=== PATIENT | male | born 1945 | race Caucasian/White ===

== ENCOUNTER 2019-09-03 08:25 | Outpatient (CLI) | payer MEDICARE, SELFPAY ==
[2019-09-03 09:11] LABS: Basophils Absolute Auto 0.1 K/mm3 (0.0-0.1); Basophils Percent Auto 0.7 % (0.2-1.2); Eosinophils Absolute Auto 0.1 K/mm3 (0-0.3); Eosinophils Percent Auto 0.4 % (0-4.4); Hematocrit 45.5 % (42.0-52.0); Hemoglobin 14.6 g/dL (14.0-18.0); Immature Granulocyte Absolute 0.03 K/mm3 (0.00-0.031); Immature Granulocyte Percent A 0.2 % (0-0.5); Lymphocytes Absolute Auto 2.46 K/mm3 (0.9-3.2); Lymphocytes Percent Auto 20.4 % (18.3-44.2); Mean Corpuscular HGB Conc 32.1 g/dl (32-36); Mean Corpuscular Hemoglobin 31.1 pg (26-34); Mean Corpuscular Volume 96.8 fl (80-100); Mean Platelet Volume 10.2 fl (7.4-10.4); Monocytes Absolute Auto 1.1 K/mm3 (0.1-0.6); Monocytes Percent Auto 9.3 % (2.6-8.5); Neutrophils Absolute Auto 8.3 K/mm3 (1.3-6.7); Platelet Count Result 349 k/mm3 (150-375); White Blood Count 12.1 K/mm3 (4.5-10.0)
[2019-09-03 09:23] LABS: INR 0.9; Prothrombin Time 11.9 Seconds (11.1-14.7)
[2019-09-03 09:27] LABS: Alanine Aminotransferase 29 U/L (4-50); Albumin Level 4.1 g/dL (3.5-5.1); Alkaline Phosphatase 92 U/L (38-126); Aspartate Amino Transferase 34 U/L (17-59); Bilirubin,Total 0.5 mg/dL (0.2-1.3); Blood Urea Nitrogen 17 mg/dL (9-20); Carbon Dioxide 30 mmol/L (22-30); Chloride 98 mmol/L (98-107); Estimated Glomerular Filt Rate > 60; Glucose 95 mg/dL (75-110); Potassium 4.1 mmol/L (3.4-5.0); Sodium 136 mmol/L (137-145)
== END 2019-09-03 08:26 | disposition home or self-care (01) ==
PROVIDERS: PCP Family Medicine; Visit Provider Internal Medicine Cardiovascular Disease
DX: Z01.810 Encounter for preprocedural cardiovascular examination (principal); I73.9 Peripheral vascular disease, unspecified; I99.9 Unspecified disorder of circulatory system
CPT/HCPCS: 36415; 80053; 85025; 85610

== ENCOUNTER 2020-01-21 07:52 | Outpatient (CLI) | payer MEDICARE, SELFPAY ==
--- NOTE | ~2020-01-21 | US_ITS ---
EXAMINATION: US arterial ankle brachial ind DATE: 01/21/2020 09:12 INDICATION: Intermittent claudication. Peripheral arterial occlusive disease. TECHNIQUE: Segmental pressures and plethysmographic and Doppler waveforms of the brachial and lower e xtremity arteries were obtained. COMPARISON: 02/01/2019 ultrasound arterial Doppler with pressure FINDINGS: Right and left brachial artery pressures of 146 mm Hg and 132 mm Hg, respectively, are concordant (no rmal difference <= 30 mmHg). The right ankle-brachial index (NAVID) is 1.10 (normal >= 0.9-1.0). The right great toe-brachial index (TBI) is 0.96 (normal >= 0.65). Arterial Doppler waveforms are biphasic. The left NAVID is 1.07. The left TBI is 0.74. Arterial Doppler waveforms are biphasic. IMPRESSION: Bilateral normal NAVID and TBI Reviewed, dictated and finalized at [facility]. Reviewed, dictated and finalized at [facility].
== END 2020-01-21 07:53 | disposition home or self-care (01) ==
PROVIDERS: PCP Family Medicine; Visit Provider Internal Medicine Cardiovascular Disease
DX: I77.9 Disorder of arteries and arterioles, unspecified (principal); I73.9 Peripheral vascular disease, unspecified
CPT/HCPCS: 93922

== ENCOUNTER 2021-02-10 07:29 | Outpatient (CLI) | payer MEDICARE, SELFPAY ==
--- NOTE | ~2021-02-10 | US_ITS ---
EXAMINATION: US art doppler w press LE BI DATE: 02/10/2021 08:34 INDICATION: Peripheral arterial occlusive disease post angioplasty and stenting. TECHNIQUE: Segmental pressures and plethysmographic and Doppler waveforms of the brachial and lower e xtremity arteries were obtained. COMPARISON: None. FINDINGS: Right and left brachial artery pressures of 142 mm Hg and 159 mm Hg, respectively, are concordant (no rmal difference <= 30 mmHg). The right ankle-brachial index (NAVID) is 1.04 (normal >= 0.9-1). The right great toe-brachial index (T BI) is 0.86 (normal >= 0.6-0.8). Arterial waveforms are biphasic waveforms with brisk systolic upstro kes throughout the arteries of the right lower limb.. The left NAVID is 1.08. The left TBI is 0.86. Arterial waveforms are biphasic with brisk systolic upstr okes throughout. IMPRESSION: 1. Normal NAVID's and TBI's bilaterally. No significant occlusive disease. Reviewed, dictated and finalized at [facility].
== END 2021-02-10 07:30 | disposition home or self-care (01) ==
LOC: ANHIMG 07:33
PROVIDERS: PCP Family Medicine; Visit Provider Internal Medicine Cardiovascular Disease
DX: I73.9 Peripheral vascular disease, unspecified (principal); Z95.820 Peripheral vascular angioplasty status with implants and grafts
CPT/HCPCS: 93923

== ENCOUNTER 2021-12-04 08:08 | Outpatient (CLI) | payer MEDICARE, SELFPAY ==
[2021-12-04 10:34] LABS: Alanine Aminotransferase 21 U/L (6-50); Albumin Level 4.3 g/dL (3.5-5.1); Alkaline Phosphatase 86 U/L (38-126); Anion Gap 4 mmol/L (8-16); Aspartate Amino Transferase 37 U/L (17-59); Bilirubin,Total 0.4 mg/dL (0.2-1.3); Blood Urea Nitrogen 14 mg/dL (9-20); Calcium 8.9 mg/dL (8.4-10.2); Carbon Dioxide 29 mmol/L (22-30); Chloride 105 mmol/L (98-107); Cholesterol 244 mg/dL (0-200); Estimated Glomerular Filt Rate > 60; Glucose 97 mg/dL (65-110); HDL Direct 54 mg/dL; Potassium 4.4 mmol/L (3.4-5.0); Sodium 138 mmol/L (137-145); Triglycerides 101 mg/dL (<150)
[2021-12-04 10:46] LABS: LDL Cholesterol Direct 146 mg/dL
[2021-12-04 11:02] LABS: Prostate Specific Antigen 2.6 ng/mL (< OR = 4.0)
== END 2021-12-04 08:09 | disposition home or self-care (01) ==
LOC: ANHLAB 08:13
PROVIDERS: PCP Family Medicine; Visit Provider Family Medicine
DX: E78.5 Hyperlipidemia, unspecified (principal); Z12.5 Encounter for screening for malignant neoplasm of prostate
CPT/HCPCS: 36415; 80053; 80061; 84153; G0103

== ENCOUNTER 2021-12-06 13:43 | Emergency (ER) | payer MEDICARE, SELFPAY ==
--- NOTE | ~2021-12-06 | CT_ITS ---
EXAMINATION: CT abdomen pelvis wo con DATE: 12/06/2021 15:14 INDICATION: hematuria TECHNIQUE: Computed tomography (CT) of the abdomen and pelvis was performed without intravenous contr ast. Automated exposure control and iterative reconstruction technique were employed. The dose-length product was 313.21 mGy-cm. COMPARISON: None FINDINGS: Lower thorax: Coronary artery calcification. Liver: Normal. Biliary/Gallbladder: Gallbladder is normal. No bile duct dilation. Pancreas: No mass or duct dilation. Spleen: Normal. Adrenals:No mass. Kidneys: Bilateral perinephric stranding. Bilateral hypodensities, too small to characterize but like ly simple cyst. Right upper pole hemorrhagic or proteinaceous cyst. GI tract: No small or large bowel dilation. Normal appendix. Severe diverticulosis without diverticul itis. Mesentery/Peritoneum: No ascites, mass, or free air. Retroperitoneum: No mass. Arterial atherosclerotic ossifications. Pelvis: Bladder wall thickening likely on the basis of outlet obstruction from significant prostatome any. 10 x 25 mm hyperdensity in the dependent bladder, adjacent to the right UVJ. Soft Tissues: Soft tissues and body wall unremarkable. Bones: No acute osseous finding. IMPRESSION: 10 x 25 mm dependent urinary bladder hyperdensity, may reflect adherent clot/debris or a sessile mass . Consider urology referral for cystoscopy. Reviewed, dictated and finalized at [facility]. IMPRESSION: 10 x 25 mm dependent urinary bladder hyperdensity, may reflect adherent clot/de bris or a sessile mass. Consider urology referral for cystoscopy.
[2021-12-06 13:45] VITALS: BP 177/75; PULSE 62; RESP 18; TEMP 36.6; O2SAT 100
[2021-12-06 14:51] LABS: Basophils Absolute Auto 0.1 K/mm3 (0.0-0.1); Basophils Percent Auto 0.8 % (0.2-1.2); Eosinophils Absolute Auto 0.1 K/mm3 (0-0.3); Eosinophils Percent Auto 0.8 % (0-4.4); Hematocrit 45.7 % (42.0-52.0); Hemoglobin 14.8 g/dL (14.0-18.0); Immature Granulocyte Absolute 0.01 K/mm3 (0.00-0.031); Immature Granulocyte Percent A 0.1 % (0-0.5); Lymphocytes Absolute Auto 2.56 K/mm3 (0.9-3.2); Lymphocytes Percent Auto 30.5 % (18.3-44.2); Mean Corpuscular HGB Conc 32.4 g/dl (32-36); Mean Corpuscular Hemoglobin 30.9 pg (26-34); Mean Corpuscular Volume 95.4 fl (80-100); Mean Platelet Volume 10.3 fl (7.4-10.4); Monocytes Absolute Auto 0.8 K/mm3 (0.1-0.6); Monocytes Percent Auto 9.8 % (2.6-8.5); Neutrophils Absolute Auto 4.9 K/mm3 (1.3-6.7); Platelet Count Result 311 k/mm3 (150-375); Red Blood Count 4.79 M/mm3 (4.6-6.20); Red Cell Distribution Width 13.6 % (11.5-14.5); White Blood Count 8.4 K/mm3 (4.5-10.0)
[2021-12-06 14:54] LABS: Add Urine Microscopic? YES; Appearance Urine Turbid (Clear); Bilirubin Urine Negative (Negative); Blood Urine 3+ (Negative); Color Urine Red (Yellow); Glucose Urine UA Negative (Negative); Ketones Urine Negative (Negative); Leukocyte Esterase Ur Negative LEU/UL (Negative); Nitrate Urine Negative (Negative); Protein Urine 2+ mg/dL (Negative); Specific Grav Ur 1.015 (1.001-1.035); Urobilinogen Urine 0.2 mg/dL (<2.0)
[2021-12-06 14:59] LABS: RBC Urine >75 /hpf (0-2)
[2021-12-06 15:02] LABS: Prothrombin Time 12.3 Seconds (11.1-14.7)
--- NOTE | 2021-12-06 15:02 | ED.GENADULT ---
HPI - General Adult General Chief complaint: Urogenital-Male Stated complaint: Blood in urine Time Seen by Provider: 12/06/21 14:22 History of Present Illness HPI narrative: 76-year-old male presenting to the emergency department for evaluation of hematuria. Patient states that yesterday morning when he woke up he had dark urine but states he drank water and over the course of the day it cleared. Patient states he had dark urine again this morning but then it became bloody. Patient has no prior history of urinary retention. Patient has no current dysuria. Patient denies any associated abdominal pain. Patient does take Plavix for history of peripheral vascular disease and does have a stent in his right leg Denies any prior history of urinary retention. Related Data Allergies Allergy/AdvReac Type Severity Reaction Status Date / Time No Known Allergies Allergy Verified 12/06/21 13:48 Review of Systems Review of Systems: CONSTITUTIONAL: Denies fever, chills, or sweats. EYES: Denies visual changes, redness, or discharge. ENT: Denies rhinorrhea, congestion, sore throat, or otalgia. CARDIOVASCULAR: Denies chest pain, palpitations, or edema. RESPIRATORY: Denies cough or dyspnea. GASTROINTESTINAL: Denies abdominal pain, nausea, vomiting, or diarrhea. GENITOURINARY: See HPI SKIN: Denies rash or itching. MUSCULOSKELETAL: Denies back pain, joint pain, or myalgia. NEUROLOGIC: Denies headache, numbness, or weakness. Exam Narrative: APPEARANCE: Well appearing, no pain, no distress, well-nourished. HEAD: normocephalic, atraumatic. EYES: PERRLA/EOMI, conjunctivae clear. NECK: Supple. No adenopathy, no masses. RESPIRATORY: Airway patent, respirations nonlabored. Clear to auscultation bilaterally, no rales, rhonchi, wheezing. CARDIOVASCULAR: Regular rate and rhythm without murmurs rubs or gallops. ABDOMINAL: Soft, nontender, nondistended, normal bowel sounds MUSCULOSKELETAL: Moves all extremities. Strength/ROM intact, No edema, No calf tenderness. NEURO: Alert. Cranial nerves II through XII intact. Grossly intact SKIN: Warm, dry. Normal Color Course Course Emergency Course: Patient did have hematuria on his UA. No evidence of white blood cells or infection. Patient is not retaining urine his postvoid residual was 50 mL. Patient states that he did have some clearing of his urine while he was here. Urine is red blood tinged and does have some clots. CT scan showed a 10 x 25 mm adhered clot versus sessile mass. Urology was consulted. Dr. Mena was comfortable with the plan for discharge and close outpatient follow-up. Vital Signs Vital signs: Vital Signs Temperature 97.8 F 12/06/21 13:45 Pulse Rate 62 12/06/21 13:45 Respiratory Rate 18 12/06/21 13:45 Blood Pressure 177/75 H 12/06/21 13:45 Pulse Oximetry 100 12/06/21 13:45 Oxygen Delivery Room Air 12/06/21 13:45 Temperature 97.8 F 12/06/21 13:45 Pulse Rate 60 12/06/21 16:44 Respiratory Rate 18 12/06/21 16:44 Blood Pressure 149/79 H 12/06/21 16:44 Pulse Oximetry 96 12/06/21 16:44 Oxygen Delivery Room Air 12/06/21 13:45 Medical Decision Making Vital Signs Vital Signs: Vital Signs Temperature 97.8 F 12/06/21 13:45 Pulse Rate 62 12/06/21 13:45 Respiratory Rate 18 12/06/21 13:45 Blood Pressure 177/75 H 12/06/21 13:45 Pulse Oximetry 100 12/06/21 13:45 Oxygen Delivery Room Air 12/06/21 13:45 Temperature 97.8 F 12/06/21 13:45 Pulse Rate 60 12/06/21 16:44 Respiratory Rate 18 12/06/21 16:44 Blood Pressure 149/79 H 12/06/21 16:44 Pulse Oximetry 96 12/06/21 16:44 Oxygen Delivery Room Air 12/06/21 13:45 Lab Data Lab results reviewed: Yes I reviewed the patient's lab results. Result diagrams: 12/06/21 14:37 12/06/21 14:37 Labs: Lab Results 12/06/21 12/06/21 12/06/21 Range/Units 14:30 14:37 14:37 WBC 8.4 (4.5-10.0) K/mm3 RBC 4.79 (4.6-6.20) M/m
[2021-12-06 15:03] LABS: Alanine Aminotransferase 22 U/L (6-50); Albumin Level 4.1 g/dL (3.5-5.1); Alkaline Phosphatase 81 U/L (38-126); Anion Gap 3 mmol/L (8-16); Aspartate Amino Transferase 28 U/L (17-59); Bilirubin,Total 0.2 mg/dL (0.2-1.3); Blood Urea Nitrogen 15 mg/dL (9-20); Calcium 8.9 mg/dL (8.4-10.2); Carbon Dioxide 26 mmol/L (22-30); Chloride 107 mmol/L (98-107); Estimated CRCL calculation 66 ml/min; Estimated Glomerular Filt Rate > 60; Glucose 104 mg/dL (65-110); Potassium 4.5 mmol/L (3.4-5.0); Sodium 136 mmol/L (137-145)
[2021-12-06 15:51] VITALS: BP 142/75; PULSE 95; RESP 18; O2SAT 98
[2021-12-06 16:44] VITALS: BP 149/79; PULSE 60; RESP 18; O2SAT 96
== END 2021-12-06 16:47 | disposition home or self-care (01) ==
PROVIDERS: Emergency Provider Emergency Medicine; PCP Family Medicine
DX: R31.9 Hematuria, unspecified (principal)
CPT/HCPCS: 36415; 74176; 80053; 81001; 85025; 85610; 99284

== ENCOUNTER 2022-02-09 08:20 | Outpatient (CLI) | payer MEDICARE, SELFPAY ==
--- NOTE | ~2022-02-09 | US_ITS ---
US art doppler w press LE BI INDICATION: Peripheral arterial disease TECHNIQUE: Segmental pressures and plethysmographic and Doppler waveforms of the brachial and lower e xtremity arteries were obtained. COMPARISON: None. FINDINGS: Right and left brachial artery pressures of 144 mm Hg and 142 mm Hg, respectively, are concordant (no rmal difference <= 30 mmHg). The right ankle-brachial index (NAVID) is 1.17 (normal >= 0.9-1.0). The right great toe-brachial index (TBI) is 0.85 (normal >= 0.60). The left NAVID is 1.08. The left TBI is 0.69. IMPRESSION: 1. Normal bilateral ankle and toe brachial indices. Reviewed, dictated and finalized at [facility].
== END 2022-02-09 08:21 | disposition home or self-care (01) ==
PROVIDERS: PCP Family Medicine; Visit Provider Internal Medicine Cardiovascular Disease
DX: I73.9 Peripheral vascular disease, unspecified (principal); Z95.820 Peripheral vascular angioplasty status with implants and grafts
CPT/HCPCS: 93923

== ENCOUNTER 2023-01-28 08:56 | Outpatient (CLI) | payer MEDICARE, SELFPAY ==
--- NOTE | ~2023-01-28 | US_ITS ---
US arterial ankle brachial ind INDICATION: Peripheral arterial disease. Intermittent claudication. And leg pain. TECHNIQUE: Segmental pressures and plethysmographic and Doppler waveforms of the brachial and lower e xtremity arteries were obtained. COMPARISON: None. FINDINGS: Right and left brachial artery pressures of 118 mm Hg and 124 mm Hg, respectively, are concordant (no rmal difference <= 30 mmHg). The right ankle-brachial index (NAVID) is 1.35 (normal >= 0.9-1.0). The right great toe-brachial index (TBI) is 0.69 (normal >= 0.60). The left NAVID is 1.24. The left TBI is 0.59. IMPRESSION: 1. Normal bilateral ankle-brachial indices. Reviewed, dictated and finalized at location [facility].
== END 2023-01-28 08:57 | disposition home or self-care (01) ==
LOC: ANHIMG 09:01
PROVIDERS: PCP Family Medicine; Visit Provider Internal Medicine Cardiovascular Disease
DX: I77.9 Disorder of arteries and arterioles, unspecified (principal); I73.9 Peripheral vascular disease, unspecified; M79.604 Pain in right leg; M79.605 Pain in left leg
CPT/HCPCS: 93922

== ENCOUNTER 2024-01-18 08:53 | Outpatient (CLI) | payer MEDICARE, SELFPAY ==
--- NOTE | ~2024-01-18 | US_ITS ---
US arterial ankle brachial ind INDICATION: Peripheral arterial occlusion TECHNIQUE: Segmental pressures and plethysmographic and Doppler waveforms of the brachial and lower e xtremity arteries were obtained. COMPARISON: None. FINDINGS: Right and left brachial artery pressures of 155 mm Hg and 163 mm Hg, respectively, are concordant (no rmal difference <= 30 mmHg). The right ankle-brachial index (NAVID) is 0.97 (normal >= 0.9-1.0). The right great toe-brachial index (TBI) is 0.7 (normal >= 0.60). The left NAVID is 0.96. The left TBI is 0.71. IMPRESSION: 1. Normal bilateral ankle-brachial indices. Reviewed, dictated and finalized at location [facility].
== END 2024-01-18 08:54 | disposition home or self-care (01) ==
PROVIDERS: PCP Family Medicine; Visit Provider Internal Medicine Cardiovascular Disease
DX: I73.9 Peripheral vascular disease, unspecified (principal); I77.9 Disorder of arteries and arterioles, unspecified
CPT/HCPCS: 93922

== ENCOUNTER 2024-12-15 14:30 | Emergency (ER) | payer MEDICARE, SELFPAY ==
--- NOTE | ~2024-12-15 | XR_ITS ---
HISTORY: injury, pain COMPARISON: None TECHNIQUE: 4 views of the left foot were performed FINDINGS: Significant soft tissue swelling is identified within the mid foot and forefoot. No acute fracture is identified. Deep to the web space of the first and second toe are multiple lucent areas for which soft tissue air is suspected. IMPRESSION: Significant soft tissue swelling within the left foot with additional findings suggestin g air within the soft tissues for which additional clinical history is needed. If there is a break in the skin, soft tissue air is to be expected. If osteomyelitis is suspected, MRI examination is recommended. Reviewed, dictated and finalized at location A. IMPRESSION: Significant soft tissue swelling within the left foot with additio nal findings suggesting air within the soft tissues for which additional clinic al history is needed. If there is a break in the skin, soft tissue air is to be expected. If osteomyelitis is suspected, MRI examination is recommended.
--- OUTSIDE RECORDS SUMMARY | 2024-12-15 14:32 | XMS_ITS | Data Portability ---
Author Organization [facility], Main Office Address [address] [place] [address] Care Team Providers Care Rn Hemo Dialysis Name Role Phone DHIRAJ INFANTE Primary Care Provider Assessment No assessment recorded. Plan of Treatment Reminders Order Date Submit Date Provider Last Modified By Organization Details Last Modified Time Details Appointments None recorded. Lab PSA, serum or plasma 024 [email or web address] [facility] (Lab), [address] [place], [address], 4 08:50:56 lipid panel, serum 024 HALEY [facility] (Lab), [address] [place], [address], 4 13:07:18 CMP, serum or plasma 024 [email or web address] [facility] (Lab), [address] [place], [address], 4 08:50:55 TSH, serum or plasma 024 [email or web address] [facility] (Lab), [address] [place], [address], 4 08:50:55 CK (creatine kinase), total, serum 024 024 [facility] (Lab), [address] [place], [address], 4 08:50:55 CBC w/ auto diff 024 024 [facility] (Lab), [address] [place], [address], 4 08:50:56 TSH, serum or plasma 024 024 [id number] [facility] (Lab), [address] [place], [address], 4 08:50:56 PSA, serum or plasma [address] (Lab), [address] [place], [address], 3 08:17:08 lipid panel, serum [address] (Lab), [address] [place], [address], 3 08:17:08 CMP, serum or plasma [address] (Lab), [address] [place], [address], 3 08:17:08 Referral None recorded. Procedures cerumen removal (PROC) 025 025 [email or web address] Not available 5 11:46:36 Surgeries None recorded. Imaging XR, chest, 2 view 024 024 HALEY Not available 4 11:06:26 Medication Orders None recorded. Patient TargetsNo targets recorded. Patient Instructions Encounter Date Encounter Id Patient Instructions Last Modified By Organization Details Last Modified Time 11/10/2022 [id number] dementia rating scale-2* Not available 11/10/2022 11:48:07 alcohol misuse* Not available 11/10/2022 11:48:16 depression screening* Not available 11/10/2022 11:48:23 multi-dimensiona l health assessment questionnaire* Not available 11/10/2022 11:47:56 Personalized Hea lth Plan and Screening Recommendations Advance Directives - Do you have one? Yes Advance Directives - Do we have your advance directive on file in your health record? No, please bring in a copy at your earliest convenience Primary Prevention/Interven tion (prevents or decreases the chance of common diseases from occurring) Smoking Risk: Smoker Continue to consider stopping smoking and call if we can assist you Alcohol Misuse Screening: Negative I have no recommendations. Weight: Appropriate Physical activity: Need more exercise/physical activity minimum of 10-20 minutes of activity that causes mild breathlessness/day Nutrition: Good Fall Risk (screened today): High Refer to attached handout Preventing Falls: After your Visit Vaccines Pneumococcal: Recommended today Influenza: Your next one in the fall of this year Chronic Disease Risks Stroke: Intermediate Risk Continue current treatment plan Heart Attack: Intermediate Risk Continue current treatment plan Clogging of the Arteries: Intermediate Risk Continue current treatment plan Diabetes: Low Risk I have no recommendations Secondary Prevention/Interven tion (detects treatable diseases before they may cause symptoms, disability, or ) Prostate Cancer Screening: PSA recommended No digital rectal exam screening necessary Colon Cancer Screening: Colonoscopy Recommended Date Screening Last Performed: Eye Disease Screening: Your next exam in: Fall 2022 Dementia Risk: Low I have no recommendations Depression Screening: Negative I have no recommendations. Not available 11/09/2022 12:37:03 11/14/2023 [id number] dementia rating scale-2* Not available 11/14/2023 14:43:57 Timed Up and Go test (TUG)* Not available 11/14/2023 14:43:53 depression screening* Not available 11/14/2023 14:43:46 alcohol misuse* Not available 11/14/2023 14:43:35 multi-dimensiona l health assessment questionnaire* Not available 11/14/2023 14:43:18 Personalized Hea lth Plan and Screening Recommendations Advance Directives - Do you have one? Yes I have no recommendations Advance Directives - Do we have your advance directive on file in your health record? Primary Prevention/Interven tion (prevents or decreases the chance of common diseases from occurring) Smoking Risk: Smoker Continue to consider stopping smoking and call if we can assist you Alcohol Misuse Screening: Negative I have no recommendations Weight: Appropriate try to lose 5% of your body weight Physical activity: Need more exercise/physical activity minimum of 20-30 minutes activity that causes mild breathlessness/day Nutrition: Average Eat Heart Healthy Diet Fall Risk (screened today): Intermediate Recommend regular use of cane or walker Vaccines Pneumococcal: No further needed Influenza: Your next one in the fall of this year Chronic Disease Risks Stroke: Intermediate Risk Active diagnosis, Continue current treatment plan Heart Attack: Intermediate Risk Active diagnosis, Continue current treatment plan Clogging of the Arteries: Intermediate Risk Active diagnosis, Continue current treatment plan Diabetes: Low Risk I have no recommendations Secondary Prevention/Interven tion (detects treatable diseases before they may cause symptoms, disability, or ) Prostate Cancer Screening: PSA Recommeded today Colon Cancer Screening: Colonoscopy Recommended today Date Screening Last Performed: Eye Disease Screening: No Eye exam necessary Dementia Risk: Low I have no recommendations Depression Screening: Negative I have no recommendations Not available 11/10/2023 16:48:07 09/12/2024 [id number] advised against use rubbing alcohol to external auditory canals as this can increase irritation symptoms. Provided information regarding weekly use of Debrox to aid in cerumen softening. Patient will follow up in 6 months for routine cerumen removal. [email or web address] Not available 09/12/2024 10:12:30 Reason for Referral None Reported. Results Created Date Observation Date Name Description Value Unit Range Abnormal Flag Note LastModifiedBy Organization Detail LastModifiedTime 12/07/19 22 12/06/2021 CT, abdom en + pelvi s, w/o contr ast No observ ation record ed. [id number], [address], 09/01/2022 17:13:45 02/10/20 22 02/09/2022 imagi ng/di agnos tic resul t No observ ation record ed. [id number], [address], 09/01/2022 17:13:45 01/29/20 23 01/28/2023 (NAVID) ankle brach ial index * No observ ation record ed. [address], [place], [address], 01/31/2023 09:14:42 11/14/19 24 11/14/2023 XR, chest , 2 view No observ ation record ed. [address], [place], [address], 03/15/2024 09:20:43 Result Notes None recorded. 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 Not Available [facility] 3 17:13:06 Peripher al vascular disease 188123922 Active 2021 Not Available [facility] 3 17:13:06 Melanocy tic nevus 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 Active Not Available [facility] 3 17:13:06 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 592657377 Active 2019 Not Available [facility] 3 17:13:06 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, type IB 14492150 Completed unknown type Not Available [facility] 3 17:13:06 Hyperlip idemia 15250286 Active Not Available [facility] 3 17:13:06 Intermit tent claudica tion 66455340 Active Not Available [facility] 3 17:13:06 Tobacco dependen ce syndrome 40826188 Active Not Available [facility] 3 17:13:06 Screenin g for malignan t neoplasm of prostate Active 2023 EARLENE Kamara [address] [facility], [facility] [address], [place], [address] , [employer] 4 09:42:33 Impacted cerumen of bilatera l ears 51500109515 45404 Active 2023 DARIUSZ Prater [address] [facility], [facility] [address], [place], [address] , [employer] 4 14:47:21 Notes:Some problems listed i n Document: #[id number] could not be added to this patient's chart. Please review this document and add these problems to the patient's chart manually as needed. Problem Notes None recorded. Procedures Surgical History Date Name Laterality Status Provider Name and Address Organization Details Recorded Time 4 Cerumen Impaction completed DARIUSZ Prater [address] [facility], [facility] [address], [place], [address], [employer] 02/23/2024 14:47:03 4 Medicare Wellness CPT Code, subsequent completed Becki Bustos RN [facility] 11/10/2023 16:34:31 3 Medicare Wellness CPT Code, subsequent completed Loreta Pollack RN [facility] 11/09/2022 12:30:18 9 excision of carcinoma of nose completed Mara Seo RN [facility] 02/20/2024 15:10:27 Imaging Results None recorded. Procedure Notes None recorded. Medical Equipment None Reported. Allergies No known drug allergies Medications Name Sig Start Date Stop Date Status Note LastModified by Organization Details LastModified Time amoxicilli n 500 mg capsule TAKE 1 CAPSULE BY MOUTH EVERY 8 HOURS 09/12 completed Not Available Not Available Not Available cilostazol 100 mg tablet 02/20 completed Not Available Not Available Not Available atorvastat in 80 mg tablet 02/20 completed Not Available Not Available Not Available cilostazol 50 mg tablet 10/04 completed Not Available Not Available Not Available clopidogre l 75 mg tablet active PLAVIX Not Available Not Available Not Available sildenafil 100 mg tablet TAKE 1 TABLET BY MOUTH EVERY DAY NEEDED 11/10 completed Not Available Not Available Not Available simvastati n 40 mg tablet one po daily 10/04 completed Not Available Not Available Not Available ofloxacin 0.3 % ear drops INSTILL 10 DROPS INTO EACH EAR TWICE DAILY FOR 14 DAYS 09/12 completed Not Available Not Available Not Available amoxicilli n 875 mg tablet TAKE 1 TABLET BY MOUTH TWICE DAILY 11/27 completed Not Available Not Available Not Available tamsulosin 0.4 mg capsule TAKE 1 CAPSULE BY MOUTH DAILY 11/10 completed Not Available Not Available Not Available phenazopyr idine 100 mg tablet TAKE 1 TABLET BY MOUTH THREE TIMES DAILY NEEDED 11/10 completed Not Available Not Available Not Available simvastati n 20 mg tablet Take 1 tablet every day by oral route. active Not Available Not Available No t Available methylpred nisolone 4 mg tablets in a dose pack FPD 03/05 completed Not Available Not Available Not Available ketoconazo le 2 % topical cream APPLY in between toes daily active Not Available Not Available No t Available tobramycin 0.3 %-dexameth asone 0.1 % eye drops,susp ension INSTILL 4 DROPS TO RIGHT EAR TWICE DAILY 11/10 completed Not Available Not Available Not Available Asprin Ec Low Dose 81 mg tablet,del ayed release Take 1 tablet every day by oral route. 11/10 completed Not Available Not Available Not Available ezetimibe 10 mg tablet active Not Available Not Available Not Available rosuvastat in 10 mg tablet Take 1 tablet every day by oral route. 11/10 completed Not Available Not Available Not Available rosuvastat in 40 mg tablet active Not Available Not Available Not Available EpiPen 0.3 mg/0.3 mL injection, auto-injec tor Take 1 auto as needed by injectio n route. 03/05 completed Not Available Not Available Not Available Chantix 1 mg tablet FOLLOW PACKAGE DIRECTIO NS 10/04 completed Not Available Not Available Not Available Xarelto active Not Available Not Avail able Not Available Chantix Starting Month Box 0.5 mg (11)-1 mg (42) tablets in dose pack Take by oral route 1 pill daily x 3 days then 1 pill BID thereaft er. 10/04 completed Not Available Not Available Not Available ID NOW COVID-19 Test Kit TEST DIRECTED TODAY 11/10 completed Not Available Not Available Not Available Fluzone High-Dose Quad (PF) 240 mcg/0.7 mL IM syringe PHARMACY ADMINIST ERED 11/10 completed Not Available Not Available Not Available Vitals Date Recorded Body height Body mass index (BMI) Body weight Body temperature Provider Name and Address Organization Details Last Updated DateTime 09/12/2024 160.02 cm 25.1 kg/m2 31516.68 g 97.8 [degF] Mara Seo RN [facility] 09/12/2024 09:56:16 Date Recorded Body height Body mass index (BMI) Body weight Body temperature Heart rate Oxygen saturation Oxygen saturation in Arterial blood by Pulse oximetry Systolic blood pressure Diastolic blood pressure Provider Name and Address Organization Details Last Updated DateTime 3 160.02 cm 25.9 kg/m2 82653.4 9 g 98.1 [degF] 64 /min 97 % 97 % 180 mm[Hg] 80 mm[Hg] CHAPIS Bertrand [facility] [employer] [facility] 3 10:59:58 Date Recorded Body height Body mass index (BMI) Body weight Body temperature Heart rate Oxygen saturation Oxygen saturation in Arterial blood by Pulse oximetry Respiratory rate Systolic blood pressure Diastolic blood pressure Provider Name and Address Organization Details Last Updated DateTime 4 160.02 cm 25.5 kg/m2 88059.3 g 98.1 [degF] 59 /min 97 % 97 % 16 /min 160 mm[Hg] 80 mm[Hg] Suri Gonzalez RN [facility] [employer] [facility] 4 09:31:45 Date Recorded Body mass index (BMI) Body height Oxygen saturation Oxygen saturation in Arterial blood by Pulse oximetry Heart rate Body temperature Body weight Systolic blood pressure Diastolic blood pressure Provider Name and Address Organization Details Last Updated DateTime 2 26.2 kg/m2 160.02 cm 99 % 99 % 53 /min 96.5 [degF] 27784.6 7 g 170 mm[Hg] 88 mm[Hg] Not Available [facility] 17:12:44 Date Recorded Body height Body mass index (BMI) Body weight Body temperature Provider Name and Address Organization Details Last Updated DateTime 02/23/2024 160.02 cm 25.2 kg/m2 44476.55 g 98.4 [degF] Medina Carlson DM [facility] 02/23/2024 14:23:11 Social History Question Answer Notes LastModified by Organizat ion Details LastModified Time Tobacco Smoking Status Current Every Day Smoker Marleny Frederickkaleb segal [facility] 11/10/2022 10:52:23 Do You Have An Advance Directive? Yes [email or web address] Information not available 11/10/2022 Are You Blind Or Do You Have Difficulty Seeing? No [email or web address] Information not available 11/10/2022 Are You Deaf Or Do You Have Serious Difficulty Hearing? No [email or web address] Information not available 11/10/2022 What Type Of Diet Are You Following? REGULAR [id number] Information not available 09/01/2022 Have There Been Any Changes To Your Family Or Social Situation? No [email or web address] Information not available 11/10/2022 Do You Use Insect Repellent Routinely? No [email or web address] Information not available 11/10/2022 Where Do You Live? [facility] [email or web address] Information not available 11/10/2022 Presence Of Domestic Violence No Information not available 11/09/2022 Are You Able To Care For Yourself? Yes Information not available 11/09/2022 Are You Blind Or Do Yo Have Difficulty Seeing? No Information not available 11/09/2022 Are You Deaf Or Do You Have Serious Difficulty Hearing? No Information not available 11/09/2022 What Was The Date Of Your Most Recent Tobacco Screening? 11/09/2022 [email or web address] Information not available 11/10/2022 Do You Have Smoke And Carbon Monoxide Detectors In Your Home? No [email or web address] Information not available 11/10/2022 How Much Tobacco Do You Smoke? 1 PPD [email or web address] Information not available 11/10/2022 Do You Use Sunscreen Routinely? No [email or web address] Information not available 11/10/2022 Do You Have Difficulty Walking Or Climbing Stairs? No [email or web address] Information not available 11/10/2022 Do You Have Any Dietary Restrictions? No [email or web address] Information not available 11/10/2022 Sex: Unknown Functional Status Question Answer Note LastModified by Organizat ion Details LastModified Time What is your level of alcohol consumption? Occasional Patient reports a beer a week [email or web address] Information not available 02/20/2024 Do you have transportation difficulties? No [email or web address] Information not available 11/10/2022 Are you able to walk? YESASSIST veronicae [email or web address] Information not available 11/10/2022 Do you have difficulty doing errands alone? No [email or web address] Information not available 11/10/2022 Are you able to care for yourself? Yes [email or web address] Information n ot available 11/10/2022 Do you have difficulty dressing or bathing? No [email or web address] Information not available 11/10/2022 What is your exercise level? Occasional [email or web address] Information not available 11/10/2022 Mental Status Question Answer Note LastModified by Organization D etails LastModified Time Do you have difficulty concentrating, remembering or making decisions? No Information no t available 11/10/2022 Family History Relationship Description Onset Age of this Age Resolved Age Notes LastModified by Organization Details LastModified Time Father No current problems or disability [email or web address] Not available 02/19 15:06:32 Mother No current problems or disability [email or web address] Not available 02/19 15:06:32 Notes:NO ENT Medical History Condition Response CANCER: SPECIFY Y Immunizations Vaccine Type Date Status Note Provider Nam e and Address Organization Details Recorded Time Pneumococcal conjugate PCV 13 3 completed Nicolle Mazariegos MD [address] [facility], [place], [address], [facility] [employer] 11/10/2022 20:31:37 Past Encounters Encounter ID Performer Location Encounter Start Date Encounter Closed Date Diagnosis/Indication Diagnosis SNOMED-CT Code Diagnosis ICD10 Code Diagnosis Note [id number] Nicolle Mazariegos MD [facility] Deborah prasda [address] [place] [address] [address] [place] [address] 11/27/2021 00:00:00 11/27/2021 20:44:18 [id number] Nicolle Mazariegos MD [facility] [address] [place] [address] 11/10/2022 10:51:08 11/10/2022 11:25:01 Adult health examination 600915740 Z00.00 Screening for disorder 816092740 Z13.9 Hyperlipidemia 60464697 E78.5 Administra tion of pneumococcal vaccine 73944532 Z23 Screening for malignant neoplasm of prostate 661554095 Z12.5 Charcot-Ma carlotta-Tooth disease, type II 461663683 G60.0 Continue exercising . [id number] Andre Alcaraz MD [facility] [address] [place] [address] 11/14/2023 09:20:19 11/14/2023 09:47:44 Adult health examination 863460384 Z00.00 Screening for disorder 983138475 Z13.9 Bad circul ation - vasomotor change 053645994 I73.89 Charcot-Ma carlotta-Tooth disease, type II 801899724 G60.0 Hyperlipidemia 56569378 E78.5 Intermitte nt claudication 65593145 I73.9 Peripheral vascular disease 347896036 I73.9 Tobacco de pendence syndrome 07649242 F17.200 Screening for malignant neoplasm of prostate 613369241 Z12.5 [id number] DARIUSZ Prater [facility] [place] [address] [place] [address] 02/23/2024 14:14:28 02/23/2024 14:50:04 Impacted cerumen of bilateral ears 6632816256 186868 H61.23 [id number] Nicolas Luna MD [facility] [place] [address] [place] [address] 09/12/2024 09:47:26 09/12/2024 10:13:24 Impacted cerumen of bilateral ears 5212350270 432902 H61.23 Bilateral cerumen impaction successful ly removed with irrigation Health Concerns Section Related Observation LastModified by Organization Detai ls LastModified Time None Recorded Concern Status LastModified by Organization Details LastModified Time None Recorded Advance Directives Directive Y: Payers Insurance Date Sequence Insurance Name Policy Number Policy Lee Covered Member ID Lee Member ID Guarantor Name 09/12/2024 1 [facility] - MEDICARE COMPLETE (MEDICARE REPLACEMENT HMO) [id number] Sai Ibanez [id number] Sai Ibanez Notes Date Note Type Note Provider Name and Address Organization Details Recorded Time 11/10/2022 text/html Here today for MWV. In 10/24 started urinating blood went to urologist and found a tumor. It was removed. Goes to sampler and test preparer and neurologist. CMT is progressing.Needs a pneumonia shot. Has pain below right shoulder. Has numbness of right toe. Balance is not good. Has fallen twice in the last year. Memory is ok. Nicolle Mazariegos MD [address], [place], [address], [employer] 11/10/2022 20:36:04 11/14/2023 text/html here for medicar e wellness exam EARLENE Kamara [address], [place], [address], [employer] 12/03/2023 17:29:59 02/23/2024 text/html This patient has a PMH significant for bladder cancer and PVD who presents to the clinic today with a complaint of a clogged right ear. He reports that 1 week ago he presented to his PCP and was diagnosed with left otitis media and was prescribed amoxicillin and ofloxacin for management. He reports that he was referred to Dr. Werner, ENT but was unable to be seen until the end of March. He reports right-sided hearing loss. Denies any pain. DARIUSZ Prater [address], [place], [address], [employer] 02/23/2024 14:47:51 09/12/2024 text/html This patient presents for a routine follow-up for bilateral cerumen impaction. He states use of hydrogen peroxide and rubbing alcohol to his external auditory canal without affective cerumen removal. Denies any otalgia. Mara Glez, CERTIFIED ACTIVITIES DIRECTOR [address] [facility], [facility] [address], [place], [address], [place] [facility] [employer] 09/12/2024 10:12:35
--- OUTSIDE RECORDS SUMMARY | 2024-12-15 14:33 | XMS_ITS | Clinical Summary ---
Author Organization [facility] Address [address] [place] [address] Care Team Providers Care Senior Solutions Engineer Name Role Phone Jami Cruz MD Primary Care Provider [phone] Allergies Active Allergy Reactions Criticality Noted Date Comments Insect Venom Anaphylaxis High Fire ants, bees, etc Medications econazole 1 % cream Apply once daily to affected areas on feet, webs of feet 85 g 11 05/11/2023 Active rivaroxaban (XARELTO) 2.5 mg tablet Take 1 tablet (2.5 mg total) by mouth 2 (two) times a day 60 tablet 11 05/30/2024 Active clopidogreL (PLAVIX) 75 mg tablet TAKE 1 TABLET BY MOUTH DAILY 90 tablet 3 06/25/2024 Active rosuvastatin (CRESTOR) 40 mg tablet TAKE 1 TABLET BY MOUTH AT NIGHT 90 tablet 3 06/25/2024 Active ezetimibe (ZETIA) 10 mg tablet TAKE 1 TABLET BY MOUTH DAILY 100 tablet 1 11/13/2024 Active Active Problems Problem Noted Date Diagnosed Date Peripheral vascular disease 03/01/2022 Rovodjh-Yxgwq-Vyxgf disease type 2 07/02/2019 Finding of above normal blood pressure 9 Intermittent claudication 07/02/2019 Melanocytic nevus 07/02/2019 Poor peripheral blood flow due to vasomotor reac tion 07/02/2019 Tobacco dependence syndrome 07/02/2019 Hyperlipidemia 05/13/2015 Overview (10/07/2016): Hyperlipidemia, familial, high LDL Tobacco use 05/13/2015 Overview (10/07/2016): Tobacco use 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 Overview (10/07/2016): Peripheral arterial disease Dyspnea on exertion 05/13/2015 Overview (10/07/2016): Dyspnea on exertion Keratosis, senilis 02/19/2015 Senile angioma 02/19/2015 Encounters Date Type Department Care Team Description 11/01/2024 10:00 AM CDT Office Visit [facility] Neuro Muscle [address] [place] [address] [place] [address] Karlos Payan MD CMTD (Fssgede-Hhxsy-Mhwxy disease) (Primary Dx) from Last 3 Months Surgical History Surgery Date Site/Laterality Comments NO PAST SURGERIES COLONOSCOPY ANGIOPLASTY 09/07/2019 BLADDER SURGERY 12/22/21 tumor non-invasive Medical History Medical History Date Comments Hyperlipidemia Hyperlipidemia Hx Other Medical PAD PAOD (peripheral arterial occlusive disease) Xipywfk-Yowlz-Sahdm disease type 2 Intermittent claudication Dyspnea on exertion Diverticulosis Hepatitis B virus infection Hepa titis B was tx w/gamma globulin, also had Hep A TIA (transient ischemic attack) Numbness in right leg Cataract Migraines Heart disease claudication 2014 Cancer (HCC) bladder (12/22/21) tu mor removed Clotting disorder blood in urine prior to tumor removed Family History Medical History Relation Name Comments Other Brother pemphigus; Cancer Father LOU Glaucoma Father LOU Hearing loss Father LOU Pancreatic cancer Father LOU Cancer, pa ncreas; Stroke Father LOU Ulcers Father LOU stomach Vision loss Father LOU Alzheimer's disease Mother magdalene ibanez Relation Name Status Comments Brother Father LOU Mother magdalene ibanez Social History Tobacco Use Types Packs/Day Years Used Date Smoking Tobacco: Every Day Cigarettes 1.3 70.4 Started: 07/04/1953 Smokeless Tobacco: Never Tobacco Cessation:Ready to Q uit: Not Asked; Counseling Given: Not Answered Comments:was on chantix twice but had stomach problems Alcohol Use Standard Drinks/Week Comments Yes 4 (1 standard drink = 0.6 oz pur e alcohol) Sex and Gender Information Value Date Recorded Sex Assigned at Not on file Legal Sex Male 11:32 AM SITE AUDITOR Gender Identity Male 02/18/2021 6:42 AM CDT Sexual Orientation Straight 08/15/2019 7: 08 AM SITE AUDITOR Obstetrics History Last Filed Vital Signs Vital Sign Reading Time Taken Comments Blood Pressure 153/90 11/01/2024 9:55 AM CDT Pulse 71 11/01/2024 9:55 AM CDT Temperature 36.9 C (98.5 F) 01/28/2023 12:16 PM CDT Respiratory Rate 16 05/25/2023 9:00 AM SITE AUDITOR Oxygen Saturation 99% 05/30/2024 8:26 AM SITE AUDITOR Inhaled Oxygen Concentration - - Weight 61.7 kg (136 lb) 11/01/2024 9:55 AM CDT Height 162.6 cm (5' 4) 11/01/2024 9:55 AM CDT Body Mass Index 23.34 11/01/2024 9:55 AM CDT Plan of Treatment Health Maintenance Due Date Last Done Comments Depression Screening 1945 Hepatitis C Screening 1945 DTaP/Tdap/Td Vaccine (1 - Tdap) 1957 Hepatitis B Screening 1964 Lung Cancer Screening 1996 Zoster Vaccine (1 of 2) 1996 Abdominal Aortic Aneurysm (AAA) Screen 09/17/2011 Well Visit 65+ 09/17/2011 Fall Risk Assessment 09/06/2020 09/07/2019, 11/03/19 18 Pneumococcal vaccine 65+ (2 of 2 - PPSV23) 01/05/2023 11/10/2022 Influenza Vaccine (Season Ended) 2025 05/02/20 23 Medical Devices Implanted Type Area Loan Officer Device Identifier Shelf Expiration Date Model / Serial / Lot [employer] [id number] Device Closure Angio-Seal Vip Bondek-Plus Polyglyd L70 Cm Od6 Fr Odsec.035 In Vascular - [id number] Implanted:Qty: 1 on 09/07/2019 [facility] [id number] / / [employer] [id number] Omnilink Elite 7mm 16mm 135cm Otw Balloon Expandable Low Profile - [id number] Implanted:Qty: 1 on 09/07/2019 by Albert Willis MD at [facility] [employer] [id number] / / Description:Our stock given back to rep, our stock implanted Insurance MEDICARE ADVANTAGE MEDICARE ADVANTAGE MEDICARE ADVANTAGE Care Teams Senior Solutions Engineer Relationship Specialty Start Date End Date Jami Cruz MD [address] [place] [address] PCP - General Family Medicine 05/02/24
--- OUTSIDE RECORDS SUMMARY | 2024-12-15 14:33 | XMS_ITS | Referral Summary ---
Author Organization [facility] Address [address] [place] [address] Care Team Providers Care Material Movers Name Role Phone Jami Cruz MD Primary Care Provider Encounters Date Type Department Care Team Description 11/01/2024 10:00 AM CDT Office Visit [facility] Neuro Muscle [address] [facility] [address]th [place] [address] [place] [address] Karlos Payan MD CMTD (Pbhrwfc-Ydyzb-Vcnwi disease) (Primary Dx) from Last 3 Months Allergies Active Allergy Reactions Criticality Noted Date [...] Date Diagnosed Date Peripheral vascular disease 03/01/2022 Kqguqty-Vingj-Guftb disease type 2 07/02/2019 Finding of above [...] exertion Keratosis, senilis 02/19/2015 Senile angioma 02/19/2015 Social History Tobacco Use Types Packs/Day Years [...] on file Legal Sex Male 11:32 AM HAT IRONER Gender Identity Male 02/18/2021 6:42 AM CDT Sexual Orientation Straight 08/15/2019 7: 08 AM HAT IRONER Last Filed Vital Signs Vital Sign Reading Time Taken Comments Blood Pressure 153/90 11/01/2024 9:55 AM CDT Pulse 71 11/01/2024 9:55 AM CDT Temperature 36.9 C (98.5 F) 01/28/2023 12:16 PM CDT Respiratory Rate 16 05/25/2023 9:00 AM HAT IRONER Oxygen Saturation 99% 05/30/2024 8:26 AM HAT IRONER Inhaled Oxygen Concentration - - Weight 61.7 kg (136 lb) 11/01/2024 9:55 AM CDT Height 162.6 cm (5' 4) 11/01/2024 9:55 AM CDT Body Mass Index 23.34 11/01/2024 9:55 AM CDT Plan of Treatment Not on file Medical Devices Implanted Type Area Repair Servicer Device Identifier Shelf Expiration Date Model / Serial / Lot [facility] Lauren [id number] Device Closure Angio-Seal Vip Bondek-Plus Polyglyd L70 Cm Od6 Fr Odsec.035 In Vascular - [id number] Implanted:Qty: 1 on 09/07/2019 by Albert Willis MD at [facility] [id number] / / [employer] [id number] Omnilink Elite 7mm 16mm 135cm Otw Balloon Expandable Low Profile - [id number] Implanted:Qty: 1 on 09/07/2019 by Albert Willis MD at [employer] [id number] Description:Our stock given back to rep, our stock implanted Insurance MEDICARE ADVANTAGE [id number] [place] [address] [facility] MEDICARE ADVANTAGE Care Teams Material Movers Relationship Specialty Start Date End Date Jami Cruz MD [address] [place], [place] [id number] PCP - General Family Medicine 05/02/24
--- NOTE | 2024-12-15 14:40 | ED_ITS ---
HPI - Extremity Injury (Lower) General Chief Complaint: Extremity Injury, Lower Stated Complaint: Lt Foot Injury Time Seen by Provider: 12/15/24 14:33 Source: patient Mode of arrival: ambulatory Limitations: no limitations History of Present Illness HPI Narrative: Patient is a 71-year-old male who presents with left lateral foot pain after rolling ankle out and falling and kitchen this morning. Denies hitting head. Patient walks with a cane at baseline. Patient has significant vascular issues with stent in his femoral artery. states bruising and swelling started immediately after injury. Related Data Home Medications ?Medication ?Instructions ?Recorded ?Confirmed ?Last Taken ?Type clopidogrel 75 mg tablet 75 mg PO DAILY 02/09/24 12/15/24 Unknown History ezetimibe 10 mg tablet 10 mg PO DAILY 02/09/24 12/15/24 Unknown History rosuvastatin 40 mg tablet 40 mg PO DAILY 02/09/24 12/15/24 Unknown History Allergies Allergy/AdvReac Type Severity Reaction Status Date / Time insect venom Allergy Severe Anaphylactic Verified 12/15/24 14:37 Shock Review of Systems Review of Systems: All systems reviewed & are unremarkable except as noted in HPI and below Constitutional: Constitutional: Denies body ache(s), Denies chills, Denies fatigue, Denies fever(s), Denies headache(s), Denies malaise and Denies weakness Eyes: Eyes: Denies blurry vision, Denies irritation and Denies loss of vision ENT: Denies otalgia, Denies headache(s), Denies nasal discharge, Denies sinus pain and Denies sore throat Cardiovascular: Cardiovascular: Denies chest pain, Denies irregular heart rhythm and Denies dyspnea Respiratory: Respiratory: Denies dyspnea Gastrointestinal: Gastrointestinal: Denies abdominal pain, Denies melena, Denies hematochezia, Denies diarrhea, Denies nausea and Denies vomiting Musculoskeletal: Musculoskeletal: Denies back pain, Denies myalgias, Reports arthralgias and Reports joint swelling Integumentary/Breasts: Skin/Breast: Denies pruritus and Denies rash Neurologic: Denies headache(s), Denies loss of vision and Denies weakness Psychiatric: Psychiatric: Reports no additional psychiatric complaints Endocrine: Endocrine: Denies fatigue PMFSH Past Medical History Medical History Swelling of left foot Numbness of right foot 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 Hyperlipemia Family History Family History Father Cancer Dementia Sibling Heart disease Cerebrovascular accident Social History Social History Smoking status: Current every day smoker Tobacco type: cigarettes (1 ppd ) Additional smoking assessment comments: Marijuana Alcohol intake: current Drinks per week: 2 Substance use: current Substance use type: marijuana Do You Feel Safe in your Home?: Yes Lack of Transportation: No Lack of Food: Never True Current Housing: I Have Housing Concerned About Future Housing: No Difficulty Paying Gas/Electric Bills: No Difficulty Paying for Meds: No Currently Unemployed: No Difficulty w/ Childcare or Family Care: No Living arrangements: alone Gender identity (if verbalized by the patient): Male Comments At time of signature, agree with nursing past medical, surgical, social and family history. There is no relevant family history pertinent to the presenting complaint. Exam Const: General: cooperative, healthy appearing, comfortable, no acute distress and well nourished Nutritional Appearance: well nourished Orientation/consciousness: patient oriented x3 Limitations: no limitations HENMT: Head: normal to inspection, normocephalic and atraumatic Ears: hearing grossly normal bilaterally and external ears normal Face/Nose/Sinus: Normal external nose present, normal facial exam and face symmetric Face and sinus: normal facial exam and face symmetric Mouth: Yes lip normal Eyes: General: appearance normal, both eyes and all related structures Alignment and Position: alignment normal and position normal Periorbital: periorbital findings normal Eyelids: eyelids normal Pupils: Equal, round and reactive pupils present EOM: EOMs intact bilaterally Neck: Neck: normal visual inspection, full ROM and supple Chest: Chest palpation & inspection: normal inspection of the chest Resp: Effort & Inspection: normal respiratory effort and able to speak in complete sentences Auscultation: clear to auscultation bilaterally Cardio: Rate: regular rate Rhythm: regular rhythm Heart sounds: S1 no rmal heart sound present and S2 normal heart sound present GI: Inspection: normal to inspection Skin: General skin exam: normal color and no rashes or lesions noted Neuro: General: patient oriented x3 and moves all extremities Cranial nerves: Yes Equal, round and reactive pupils present Speech: normal speech Gait exam (Neuro): Normal gait present Sensory Exam: Sensory deficit (Neuro) (neuropathy in feet) Extrem: General: normal to inspection, full ROM and no edema Left lower extremity: lower leg Details: normal to inspection and no edema; no tenderness, no ecchymosis, no deformity and no unusual warmth, ankle Details: normal to inspection, no edema and normal ROM; no tenderness, no ecchymosis and achilles tendon exam normal and foot Details: normal capillary refill, tenderness Location: of the lateral foot Location: in the mid-section, toes with normal ROM, edema Location: of the lateral foot, ecchymosis dorsal lateral mid , vascular exam Details: normal capillary refill and tendon exam active flexion normal of all toes and active extension normal of all toes; no unusual warmth Psych: Appearance: grossly normal and well kempt Mental Status: mental st atus grossly normal Speech and movement: Normal speech and movement present Affect: normal affect Attitude: cooperative Thought process: Normal thought process present Course Course Emergency Course: Patient is aware of diagnosis, understands and agrees to treatment plan. Anticipatory guidance given. Patient agrees to follow-up as directed and is aware of reasons to seek care at the emergency department. Portions of this record may have been created with voice recognition software Level of Care: Express Care Visit Vital Signs Vital signs: Vital Signs Temperature 36.8 C 12/15/24 14:41 Pulse Rate 66 12/15/24 14:41 Respiratory Rate 16 12/15/24 14:41 Blood Pressure 156/71 H 12/15/24 14:41 Pulse Oximetry 100 12/15/24 14:41 Oxygen Delivery Room Air 12/15/24 14:41 Temperature 36.8 C 12/15/24 14:41 Pulse Rate 66 12/15/24 14:41 Respiratory Rate 16 12/15/24 14:41 Blood Pressure 156/71 H 12/15/24 14:41 Pulse Oximetry 100 12/15/24 14:41 Oxygen Delivery Room Air 12/15/24 14:41 Reviewed MDM - Extremity Injury (Lower) MDM Narrative Medical decision making narrative: Discussed x-ray findings with patient. Patient admits to some foot swelling after walking long distance at [facility] to see neurologist in November. Reports that has since resolved. Patient also reports some mild discoloration at that time but by the time he saw the star route mail driver that has also resolved. Patient admits the neuropathy and vascular insufficiency have left him with very little feeling in feet and weak pulses. Patient denies any foot swelling or discoloration prior to rolling it. Patient states he is still able to walk with a cane. Offered transfer to hospital for further evaluation and to see recommended MRI to rule out osteomyelitis based on free air finding in foot on x-ray. Patient declines stating he will follow up with his PCP on Tuesday. Does state that he will go to the emergency department if symptoms are much worse tomorrow. Pt well hydrated appearing, in no respiratory distress, hemodynamically stable. Recommend supportive care. The patient is stable at time of discharge the clinical impression was discussed and the patient was given the opportunity to ask questions, which were addressed as completely as possible given the information available at present. Anticipatory guidance and return to care precautions were discussed and the importance of primary care follow-up was stressed and encouraged. The patient voiced understanding of the plan, indications to return, and the need for follow-up. Exam findings show no acute concerns or changes Patient is appropriate for outpatient treatment and follow-up. Imaging Data Radiologist's impression: HISTORY: injury, pain COMPARISON: None TECHNIQUE: 4 views of the left foot were performed FINDINGS: Significant soft tissue swelling is identified within the mid foot and forefoot. No acute fracture is identified. Deep to the web space of the first and second toe are multiple lucent areas for which soft tissue air is suspected. IMPRESSION: Significant soft tissue swelling within the left foot with additional findings suggesting air within the soft tissues for which additional clinical history is needed. If there is a break in the skin, soft tissue air is to be expected. If osteomyelitis is suspected, MRI examination is recommended. Discharge Plan Discharge Clinical Impression: Foot sprain Qualifiers: Encounter type: initial encounter Laterality: left Qualified Code(s): S93.602A - Unspecified sprain of left foot, initial encounter Patient Disposition: Home Condition: Stable Instructions: Foot Sprain (ED) Additional Instructions: Xray showed no fracture. Minimize activities that aggravate the condition The RICE protocol. Follow the RICE protocol as soon as possible after your injury: Rest your foot by not walking on it. Ice should be immediately applied to keep the swelling down. It can be used for 10 minutes, two times daily. Do not apply ice directly to your skin. Compression dressings, bandages or adriana-wraps will immobilize and support your injured ankle. Elevate your ankle above the level of your heart as often as possible during the first 48 hours. Medication: For pain, you may take: Tylenol 650-1000mg by mouth every 4-6 hours. Do not exceed 4000mg in 24 hours. Please schedule a follow-up visit with your personal physician for further evaluation and treatment within 3 days OR If your symptoms persist, change or worsen significantly before you can contact your personal physician then please, without delay, go to the emergency department for further evaluation. Your blood pressure was elevated above 120/80 today at Urgent Care. This puts you above the threshold for follow up visit with a primary care provider. High blood pressure does not usually cause any symptoms, however it may lead to kidney failure, stroke, heart disease just to name a few if untreated . Many people are anxious when seeing a provider or nurse. As a result, you are not diagnosed with hypertension at this time unless your blood pressure is persistently high at two office visits at least one week apart. Some things that can help lower blood pressure are lifestyle modifications, such as light exercise, decreased salt in diet, and weight loss. It is important to follow up with a PCP about this within 1 week. Patient Language: Spanish Prescriptions: No Action Xarelto 2.5 mg tablet 2.5 mg PO BID Qty: 1 0RF clopidogrel 75 mg tablet 75 mg PO DAILY rosuvastatin 40 mg tablet 40 mg PO DAILY ezetimibe 10 mg tablet 10 mg PO DAILY Follow-up/Referrals: Jami Cruz MD [Primary Care Provider] - 3 Days (possible air within soft tissue. Needs to rule out osteomyelitis. Recommended MRI based on xray) Stand Alone Forms: Work/School Release IP Time of Disposition: 15:39
[2024-12-15 14:41] VITALS: BP 156/71; PULSE 66; RESP 16; TEMP 36.8; O2SAT 100
== END 2024-12-15 15:40 | disposition home or self-care (01) ==
PROVIDERS: Emergency Provider Nurse Practitioner Family; PCP Family Medicine
DX: S93.602A Unspecified sprain of left foot, initial encounter (principal); X50.0XXA Overexertion from strenuous movement or load, initial encounter; E78.5 Hyperlipidemia, unspecified; G60.0 Hereditary motor and sensory neuropathy
CPT/HCPCS: 73630; 99213; G0463

== ENCOUNTER 2024-12-16 11:12 | Emergency (ER) | payer MEDICARE, SELFPAY ==
--- NOTE | ~2024-12-16 | CT_ITS ---
CT scan of the left foot CLINICAL HISTORY: Infection TECHNIQUE: Following intravenous administration of 100 cc of Omnipaque 350 contrast material, axial i maging of the left foot was performed. Sagittal and coronal reformatted images were constructed. Dose reduction technique was used on this scan by utilizing automated exposure control and iterative delonte nstruction technique. The dose-length product (DLP) was 797.58 mGy-cm. Findings: No fracture or dislocation seen. No osseous destructive change or periosteal are identified to suggest osteomyelitis. There is moderate degenerative change of the tibiotalar joint. Remaining j oint spaces are intact. There is prominent dorsal soft tissue swelling and edema over the foot, with questionable small fluid collections. There is a fluid-filled blister present. No soft tissue gas evident. IMPRESSION: No evidence for osteomyelitis. No soft tissue gas. No definite abscess. Extensive soft tissue edema over the dorsum of the foot with questionable small fluid collections. Reviewed, dictated and finalized at [facility].
--- OUTSIDE RECORDS SUMMARY | 2024-12-16 11:14 | XMS_ITS | Clinical Summary ---
Author Organization [facility] Address [address] [place] [address] Care Team Providers Care Cattle Examiner Name Role Phone Jami Cruz MD Primary Care Provider [phone] Allergies Active Allergy Reactions Criticality Noted Date [...] Date Diagnosed Date Peripheral vascular disease 03/01/2022 Yoeofls-Fwswt-Qumhc disease type 2 07/02/2019 Finding of above [...] Description 11/01/2024 10:00 AM CDT Office Visit [facility] Neuro Muscle [address] [facility] [address] [place] [address] [place] [address] Karlos Payan MD CMTD (Xnldzlv-Jreog-Sspgn disease) (Primary Dx) from Last 3 Months Surgical History Surgery Date Site/Laterality Comments NO PAST SURGERIES COLONOSCOPY ANGIOPLASTY 09/07/2019 BLADDER SURGERY 12/22/21 tumor non-invasive Medical History Medical History Date Comments Hyperlipidemia Hyperlipidemia Hx Other Medical PAD PAOD (peripheral arterial occlusive disease) Brgwtjf-Trhgv-Hmzzh disease type 2 Intermittent claudication Dyspnea on [...] Date Smoking Tobacco: Every Day Cigarettes 1.3 70.5 Started: 07/04/1953 Smokeless Tobacco: Never Tobacco Cessation:Ready to Q uit: Not Asked; Counseling Given: Not Answered Comments:was on chantix twice but had stomach problems Alcohol Use Standard Drinks/Week Comments Yes 4 (1 standard drink = 0.6 oz pur e alcohol) Sex and Gender Information Value Date Recorded Sex Assigned at Not on file Legal Sex Male 11:32 AM MALE INFERTILITY SPECIALIST Gender Identity Male 02/18/2021 6:42 AM CDT Sexual Orientation Straight 08/15/2019 7: 08 AM MALE INFERTILITY SPECIALIST Obstetrics History Last Filed Vital Signs Vital Sign Reading Time Taken Comments Blood Pressure 153/90 11/01/2024 9:55 AM CDT Pulse 71 11/01/2024 9:55 AM CDT Temperature 36.9 C (98.5 F) 01/28/2023 12:16 PM CDT Respiratory Rate 16 05/25/2023 9:00 AM MALE INFERTILITY SPECIALIST Oxygen Saturation 99% 05/30/2024 8:26 AM MALE INFERTILITY SPECIALIST Inhaled Oxygen Concentration - - Weight 61.7 [...] 05/02/20 23 Medical Devices Implanted Type Area Rn Case Manager Hospice Device Identifier Shelf Expiration Date Model / Serial / Lot [employer] [id number] Device Closure Angio-Seal Vip Bondek-Plus Polyglyd L70 Cm Od6 Fr Odsec.035 In Vascular - [id number] Implanted:Qty: 1 on 09/07/2019 [facility] [id number] / / [employer] [id number] Omnilink Elite 7mm 16mm 135cm Otw Balloon Expandable Low Profile - [id number] Implanted:Qty: 1 on 09/07/2019 by Albert Willis MD at [facility] [employer] [id number] / / Description:Our stock given back to rep, our stock implanted Insurance MEDICARE ADVANTAGE MEDICARE ADVANTAGE MEDICARE ADVANTAGE Care Teams Cattle Examiner Relationship Specialty Start Date End Date Jami Cruz MD [address] [place] [address] PCP - General Family Medicine 05/02/24
--- OUTSIDE RECORDS SUMMARY | 2024-12-16 11:14 | XMS_ITS | Referral Summary ---
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 Finding of above [...] on file Legal Sex Male 11:32 AM CANCELLATION CLERK Gender Identity Male 02/18/2021 6:42 AM CDT Sexual Orientation Straight 08/15/2019 7: 08 AM CANCELLATION CLERK Last Filed Vital Signs Vital Sign Reading Time Taken Comments Blood Pressure 153/90 11/01/2024 9:55 AM CDT Pulse 71 11/01/2024 9:55 AM CDT Temperature 36.9 C (98.5 F) 01/28/2023 12:16 PM CDT Respiratory Rate 16 05/25/2023 9:00 AM CANCELLATION CLERK Oxygen Saturation 99% 05/30/2024 8:26 AM CANCELLATION CLERK Inhaled Oxygen Concentration - - Weight 61.7 kg (136 lb) 11/01/2024 9:55 AM CDT Height 162.6 cm (5' 4) 11/01/2024 9:55 AM CDT Body Mass Index 23.34 11/01/2024 9:55 AM CDT Plan of Treatment Not on file Medical Devices Implanted Type Area Right Of Way Man Device Identifier Shelf Expiration Date Model / Serial / Lot [facility] Lauren [id number] Device Closure Angio-Seal Vip Bondek-Plus Polyglyd L70 Cm Od6 Fr Odsec.035 In Vascular - [id number] Implanted:Qty: 1 on 09/07/2019 by Albert Willis MD at [facility] [employer] [id number] / / [employer] [id number] Omnilink Elite 7mm 16mm 135cm Otw Balloon Expandable Low Profile - [id number] Implanted:Qty: 1 on 09/07/2019 by Albert Willis MD at [facility] [employer] [id number] Description:Our stock given back to rep, our stock implanted Insurance MEDICARE ADVANTAGE [id number] [place] [address] MEDICARE ADVANTAGE [facility] MEDICARE ADVANTAGE Care Teams Excellence Manager Relationship Specialty Start Date End Date Jami Cruz MD [address] [place], [place] [id number] PCP - General Family Medicine 05/02/24
[2024-12-16 11:16] VITALS: BP 188/97; PULSE 70; RESP 18; TEMP 36.6; O2SAT 98
--- NOTE | 2024-12-16 11:27 | ED.LOWEXIN ---
HPI - Extremity Injury (Lower) General Chief Complaint: Extremity Injury, Lower Stated Complaint: L. foot injury after fall yesterday Time Seen by Provider: 12/16/24 11:14 History of Present Illness HPI Narrative: 79-year-old male with history of peripheral arterial disease on anticoagulation with rivaroxaban and clopidogrel he also has a history of Zicrazw-Nnuxv-Lnvzn with peripheral neuropathy bilaterally. Patient presents to the emergency department for repeat evaluation of left foot pain. Patient states he slipped and fell on somewhat tile yesterday and injured his foot. He went to urgent care after he had some blistering started forming and was told to go the emergency department but decided to go to his primary care provider on Tuesday instead. X-ray at that time showed soft tissue free air but no fracture. Patient is complaining of worsening pain, developing redness and swelling and now black discoloration to his toes and surrounding soft tissues as well as blistering. Denies any systemic features such as fever, chills, nausea, vomiting, abdominal pain. Related Data Home Medications ?Medication ?Instructions ?Recorded ?Confirmed ?Last Taken ?Type clopidogrel 75 mg tablet 75 mg PO DAILY 02/09/24 12/15/24 Unknown History ezetimibe 10 mg tablet 10 mg PO DAILY 02/09/24 12/15/24 Unknown History rosuvastatin 40 mg tablet 40 mg PO DAILY 02/09/24 12/15/24 Unknown History Allergies Allergy/AdvReac Type Severity Reaction Status Date / Time insect venom Allergy Severe Anaphylactic Verified 12/16/24 11:41 Shock Review of Systems Review of Systems: As reviewed above in HPI [facility] Past Medical History Medical History Swelling of left foot Numbness of right foot 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 Hyperlipemia Family History Family History Father Cancer Dementia Sibling Heart disease Cerebrovascular accident Social History Social History Smoking status: Current every day smoker Tobacco type: cigarettes (1 ppd ) Additional smoking assessment comments: Marijuana Alcohol intake: current Drinks per week: 2 Substance use: current Substance use type: marijuana Do You Feel Safe in your Home?: Yes Lack of Transportation: No Lack of Food: Never True Current Housing: I Have Housing Concerned About Future Housing: No Difficulty Paying Gas/Electric Bills: No Difficulty Paying for Meds: No Currently Unemployed: No Difficulty w/ Childcare or Family Care: No Living arrangements: alone Gender identity (if verbalized by the patient): Male Exam Narrative: GENERAL: [Well-appearing, well-nourished, and in no acute distress.] HEAD: [Normocephalic, atraumatic.] EYES: [PERRLA and EOMI.] ENT: Nares clear, no rhinorrhea or epistaxis. Mucous membranes moist. NECK: Supple. CHEST: [Clear to auscultation. No respiratory distress.] HEART: [Regular rate and rhythm]. No murmur heard. [Normal peripheral pulses.] ABDOMEN: [Soft, nondistended], [nontender], [No rigidity or guarding] EXTREMITIES: Left lower extremity with significant soft tissue swelling with overlying bulla to the lateral aspect left foot with pain on palpation, redness and warmth, tenderness to palpation. Blackish discoloration to the toes on the dorsum of the toes 2 through 5. Able to wiggle the toes, able to plantar and dorsiflex at the ankle. Sensation chronically diminished bilaterally. 1+ pulses. SKIN: Rash and cellulitis as described above NEURO: [No focal deficits]. Alert and oriented [x3.] PSYCH: [Normal mood and affect.] Course Vital Signs Vital signs: Vital Signs Temperature 36.6 C 12/16/24 11:16 Pulse Rate 70 12/16/24 11:16 Respiratory Rate 18 12/16/24 11:16 Blood Pressure 188/97 H 12/16/24 11:16 Pulse Oximetry 98 12/16/24 11:16 Oxygen Delivery Room Air 12/16/24 11:16 Temperature 36.4 C 12/17/24 05:51 Pulse Rate 60 12/17/24 05:51 Respiratory Rate 14 12/17/24 05:51 Blood Pressure 151/66 H 12/17/24 05:51 Pulse Oximetry 97 12/17/24 05:51 Oxygen Delivery Room Air 12/16/24 11:16 MDM - Extremity Injury (Lower) MDM Narrative Medical decision making narrative: 79-year-old male with history of peripheral arterial disease on Xarelto and clopidogrel, 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 Patient presents to the emergency department with injury to his left foot and increasing pain and now developing overlying skin changes. He went to urgent care yesterday and had x-rays that showed no fracture but concern for soft tissue free air with no overlying skin breakdown. He was urged to go to the hospital but patient declined at that time. Patient presents today now he is having worsening pain in his foot, overlying skin discoloration, hemorrhagic bulla and obvious signs of active infection with soft tissue infection with tenderness to palpation on exam with possible soft tissue free air on previous imaging. Examination reveals left lower extremity with significant soft tissue swelling with overlying bulla to the lateral aspect left foot with pain on palpation, redness and warmth, tenderness to palpation. Black discoloration to the toes on the dorsum of the toes 2 through 5. Able to wiggle the toes, able to plantar and dorsiflex at the ankle. Sensation chronically diminished bilaterally. 1+ pulses. Suspect significant cellulitis versus polymicrobial infection versus necrotizing soft tissue infection versus occult fracture with osteomyelitis. CT of the foot was obtained with contrast, inflammatory markers were obtained, septic bundle initiated blood cultures, CRP, lactic acid, ESR CRP. He was started empirically on vancomycin Zosyn and clindamycin. Given a fluid bolus. Vital signs show some hypertension but no tachycardia, fever or hypoxia. Foot infection was outlined with skin marker. Patient's laboratory studies are all looking reassuring with no significant leukocytosis of 10.5, normal hemoglobin, normal platelet count. Mildly elevated ESR 25, normal renal function, normal electrolytes, hepatic function. Negative lactic acid. CT of the foot was independently reviewed and shows no evidence of osteomyelitis, soft tissue gas or definitive abscess formation but there is soft tissue edema over the dorsum of the foot consistent with exam with questionable small fluid collections. Patient re-evaluated and his examination remains stable, pain under control without any interventions. Awaiting discussion with General surgery for recommendations but patient needs admission for IV antibiotics based on significant cellulitis findings however suspicion for necrotizing infection very unlikely at this point given reassuring labs, clinical exam, CT findings and low LRINEC score of 0. Discussed the case with general surgeon Dr. Moser and we went over the patient historical features, labs, imaging together. Given patient's significant peripheral neuropathy and vascular disease history he would benefit from evaluation from a facility with higher level of care including vascular Services and recommends transfer. Patient was in agreement with transfer and I discussed the case with the [facility] transfer system as his first choice was [facility] where his neurologist is. [facility] transfer system was spoken to and at first we were connecting to the emergency department physician trying get an expedient transfer over there, but after our discussion this route was declined with recommendations to reach out to the vascular service first and have a direct admission rather than ER to ER transfer. I was then connected with the vascular surgeon Dr. 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 He agreed to be on consult and recommended admission to the hospitalist service. Finally I was connected with the hospitalist team under Dr. Godwin at [facility] who accepted the patient to a hospital bed at this time with vascular surgery on consult. Patient made aware of the plan and comfortable with transfer to [facility]. Awaiting bed assignment. Patient re-examined frequently and remains hemodynamically stable without acute concerns, examination reveals no interval changes, IV antibiotics have been infused, foot without any worsening spread of cellulitis or new symptoms. Patient care endorsed to oncoming ER physician pending transfer. Medical Records Attestation: I reviewed the patient's medical records. Lab Data Attestation: I reviewed the patient's lab results. 12/16/24 11:33 12/16/24 12:02 Labs: Lab Results 12/16/24 12/16/24 Range/Units 11:33 12:02 WBC 10.5 H (4.5-10.0) K/mm3 RBC 4.55 L (4.6-6.20) M/mm3 Hgb 14.0 (14.0-18.0) g/dL Hct 43.4 (42.0-52.0) % MCV 95.4 (80-100) fl MCH 30.8 (26-34) pg MCHC 32.3 (32-36) g/dl RDW 13.4 (11.5-14.5) % Plt Count 286 (150-375) k/mm3 MPV 10.3 (7.4-10.4) fl Immature Gran % (Auto) 0.3 (0-0.5) % Neut % (Auto) 66.0 (45.5-73.1) % Lymph % (Auto) 19.1 (18.3-44.2) % [place] % (Auto) 13.0 H (2.6-8.5) % Eos % (Auto) 0.9 (0-4.4) % Baso % (Auto) 0.7 (0.2-1.2) % Lymph # (Auto) 2.01 (0.9-3.2) K/mm3 [place] # (Auto) 1.4 H (0.1-0.6) K/mm3 Eos # (Auto) 0.1 (0-0.3) K/mm3 Baso # (Auto) 0.1 (0.0-0.1) K/mm3 Abs Immat Gran (auto) 0.03 (0.00-0.031) K/mm3 Absolute Neuts (auto) 7.0 H (1.3-6.7) K/mm3 Absolute Nucleated RBC 0.000 (0.0-0.012) K/mm3 Nucleated RBC % 0.0 (0.0-0.2) % ESR 25 H (0-20) mm/hr PT 15.1 H (11.1-14.7) Seconds INR 1.2 APTT 34.7 (22.3-36.8) Seconds Sodium 138 (137-145) mmol/L Potassium 4.6 (3.4-5.0) mmol/L Chloride 105 (98-107) mmol/L Carbon Dioxide 26 (22-30) mmol/L Anion Gap 7 (4-12) mmol/L BUN 14 (9-20) mg/dL Creatinine 0.80 0.80 (0.7-1.3) mg/dL Estim Creat Clear Calc 58 58 ml/min Estimated GFR > 60 > 60 (59 - ) Glucose 101 (65-110) mg/dL Lactic Acid 1.0 (0.7-2.0) mmol/L Calcium 9.2 (8.4-10.2) mg/dL Total Bilirubin 0.8 (0.2-1.3) mg/dL AST 35 (17-59) U/L ALT 23 (6-50) U/L Alkaline Phosphatase 75 (38-126) U/L C-Reactive Protein < 0.5 (<1.0) mg/dL Total Protein 7.5 (6.3-8.2) g/dL Albumin 4.3 (3.5-5.1) g/dL Urine Color Yellow (Yellow) Urine Appearance Clear (Clear) Urine pH 7.5 (5.0-9.0) Ur Specific Worden 1.031 (1.001-1.035) Urine Protein Negative (Negative) mg/dL Urine Glucose (UA) Negative (Negative) mg/dL Urine Ketones Negative (Negative) mg/dL Ur Blood (Man) Negative (Negative) Urine Nitrate Negative (Negative) Urine Bilirubin Negative (Negative) Urine Urobilinogen 1.0 (<2.0) mg/dL Leukocyte Esterase Rfl 2+ H (Negative) SIDDHARTH/UL Urine RBC 0-2 (0-2) /hpf Urine WBC 11-20 H (0-3) /hpf Ur Squamous Epith Cells None seen (Few) /hpf Urine Bacteria None seen /hpf Urine Casts 0-2 Imaging Data Attestation: I personally reviewed and interpreted this imaging study as follows: My impression: Impressions Foot CT 12/16/24 12:34 IMPRESSION: No evidence for osteomyelitis. No soft tissue gas. No definite abscess. Extensive soft tissue edema over the dorsum of the foot with questionable small fluid collections. Critical Care Time Critical Care Time Critical Care Time: Yes Total Critical Care Time: 35 Discharge Plan Discharge Clinical Impression: Cellulitis of foot, left, Femoral artery stenosis, Charcot Carlie Tooth muscular atrophy, Peripheral neuropathy, Peripheral vascular disease Patient Disposition: Acute Care Hospital Condition: Stable Patient Language: Sami Prescriptions: No Action Xarelto 2.5 mg tablet 2.5 mg PO BID Qty: 1 0RF clopidogrel 75 mg tablet 75 mg PO DAILY rosuvastatin 40 mg tablet 40 mg PO DAILY ezetimibe 10 mg tablet 10 mg PO DAILY Follow-up/Referrals: Jami Cruz MD [Primary Care Provider] -
[2024-12-16 11:39] LABS: Basophils Absolute Auto 0.1 K/mm3 (0.0-0.1); Basophils Percent Auto 0.7 % (0.2-1.2); Eosinophils Absolute Auto 0.1 K/mm3 (0-0.3); Eosinophils Percent Auto 0.9 % (0-4.4); Hematocrit 43.4 % (42.0-52.0); Immature Granulocyte Absolute 0.03 K/mm3 (0.00-0.031); Immature Granulocyte Percent A 0.3 % (0-0.5); Lymphocytes Absolute Auto 2.01 K/mm3 (0.9-3.2); Lymphocytes Percent Auto 19.1 % (18.3-44.2); Mean Corpuscular HGB Conc 32.3 g/dl (32-36); Mean Corpuscular Hemoglobin 30.8 pg (26-34); Mean Corpuscular Volume 95.4 fl (80-100); Mean Platelet Volume 10.3 fl (7.4-10.4); Monocytes Absolute Auto 1.4 K/mm3 (0.1-0.6); Platelet Count Result 286 k/mm3 (150-375); Red Blood Count 4.55 M/mm3 (4.6-6.20); Red Cell Distribution Width 13.4 % (11.5-14.5); White Blood Count 10.5 K/mm3 (4.5-10.0)
[2024-12-16] MEDS: Please enter patient height and weight for medication dosing 1 EACH XX (11:40)
[2024-12-16 11:50] LABS: INR 1.2; Prothrombin Time 15.1 Seconds (11.1-14.7)
[2024-12-16 11:51] LABS: Partial Thromboplastin Time 34.7 Seconds (22.3-36.8)
[2024-12-16 11:53] LABS: Alanine Aminotransferase 23 U/L (6-50); Albumin Level 4.3 g/dL (3.5-5.1); Alkaline Phosphatase 75 U/L (38-126); Anion Gap 7 mmol/L (4-12); Aspartate Amino Transferase 35 U/L (17-59); Bilirubin,Total 0.8 mg/dL (0.2-1.3); Blood Urea Nitrogen 14 mg/dL (9-20); CRP < 0.5 mg/dL (<1.0); Calcium 9.2 mg/dL (8.4-10.2); Carbon Dioxide 26 mmol/L (22-30); Chloride 105 mmol/L (98-107); Estimated CRCL calculation 58 ml/min; Estimated Glomerular Filt Rate > 60; Glucose 101 mg/dL (65-110); Potassium 4.6 mmol/L (3.4-5.0); Sodium 138 mmol/L (137-145); Total Protein 7.5 g/dL (6.3-8.2)
[2024-12-16] MEDS: SODIUM CHLORIDE 0.9% IV 1,000 ML 999 ML IV CONT (11:55)
[2024-12-16] MEDS: PIPERACILLN/TAZ 3.375GM/NS50ML 3.375 GM/50 ML BAG IVPB ×2 (11:55→18:41)
[2024-12-16 12:02] LABS: Erythrocyte Sedimentation Rate 25 mm/hr (0-20)
[2024-12-16 12:15] LABS: Add Urine Microscopic? YES; Appearance Urine Clear (Clear); Bacteria Urine None Seen /hpf; Bilirubin Urine Negative (Negative); Blood Urine Negative (Negative); Color Urine Yellow (Yellow); Glucose Urine UA Negative (Negative); Ketones Urine Negative (Negative); Leukocyte Esterase Ur 2+ LEU/UL (Negative); Nitrate Urine Negative (Negative); Non Pathogenic Casts 0-2; Protein Urine Negative (Negative); RBC Urine 0-2 /hpf (0-2); Specific Grav Ur 1.031 (1.001-1.035); Squamous Epithelial Cell Urine None Seen /hpf (Few); pH Urine 7.5 (5.0-9.0)
[2024-12-16 12:17] LABS: Estimated CRCL calculation 58 ml/min; Estimated Glomerular Filt Rate > 60
[2024-12-16] MEDS: VANCOMYCIN 1,500 MG/NS 500 ML 1,500 MG/500 ML BAG 250 MG IVPB (12:35)
[2024-12-16 13:00] VITALS: BP 152/72; PULSE 72; RESP 18; O2SAT 96
[2024-12-16 14:42] VITALS: BP 161/72; PULSE 60; RESP 18; O2SAT 97
[2024-12-16] MEDS: CLINDAMYCIN 900 MG/D5W 50 ML 900 MG/50 ML PIGGYBACK 50 MG IVPB ×2 (14:46→22:16)
[2024-12-16 16:54] VITALS: BP 145/58; PULSE 56; RESP 19; O2SAT 99
[2024-12-16 18:09] VITALS: BP 173/70; PULSE 59; RESP 18; TEMP 36.8; O2SAT 99
--- NOTE | 2024-12-16 19:36 | PC.NURSE ---
Received report from SREEKANTH Prince for cont. of care. Pt AOx4 lying on stretcher, provided with plan of care update. Pt appears in NAD. Pt provided with sandwich and water. VS WNL
[2024-12-16 19:37] VITALS: BP 140/73; PULSE 61; RESP 16; TEMP 36.6; O2SAT 99
--- NOTE | 2024-12-17 | PC.NURSE ---
Pt lying on stretcher with eyes closed, respirations even and unlabored.
[2024-12-17] MEDS: PIPERACILLN/TAZ 3.375GM/NS50ML 3.375 GM/50 ML BAG IVPB (05:50)
[2024-12-17 05:51] VITALS: BP 151/66; PULSE 60; RESP 14; TEMP 36.4; O2SAT 97
[2024-12-17] MEDS: CLINDAMYCIN 900 MG/D5W 50 ML 900 MG/50 ML PIGGYBACK 50 MG IVPB (06:35)
== END 2024-12-17 07:15 | disposition short-term general hospital (02) ==
PROVIDERS: Emergency Provider Student in an Organized Health Care Education/Training Program; PCP Family Medicine
DX: L03.116 Cellulitis of left lower limb (principal); I70.202 Unspecified atherosclerosis of native arteries of extremities, left leg; G60.0 Hereditary motor and sensory neuropathy; E78.5 Hyperlipidemia, unspecified; F17.210 Nicotine dependence, cigarettes, uncomplicated; Z79.02 Long term (current) use of antithrombotics/antiplatelets; Z79.01 Long term (current) use of anticoagulants; Z79.899 Other long term (current) drug therapy
CPT/HCPCS: 36415; 73701; 80053; 81001; 82565; 83605; 85025; 85610; 85652; 85730; 86140; 87040; 87086; 96365; 96366; 96367; 96368; 99285; J2543; J3370; J7030; Q9967

== ENCOUNTER 2025-05-02 14:34 | Outpatient (CLI) | payer MEDICARE, SELFPAY ==
--- NOTE | ~2025-05-02 | CT_ITS ---
CT lung screening INDICATION: History of nicotine dependence, screening COMPARISON: None. TECHNIQUE: CT examination of the entire thorax without contrast was performed using low dose technique. Thin section axial, sagittal and coronal images were included to increase sensitivity for small lung nodules. FINDINGS: PULMONARY NODULES: No suspicious noncalcified pulmonary nodules seen. OTHER PULMONARY FINDINGS: No significant nonnodular pleural or parenchymal abnormality is noted. No emphysematous changes are present. No pathologically enlarged lymph nodes are present. Normal heart size. To the limits of this nondedicated CT there are coronary artery calcifications. UPPER ABDOMEN AND PERIPHERAL SOFT TISSUE: Limited views of the upper abdomen and peripheral soft tissue demonstrated no abnormalities. OSSEOUS STRUCTURES: Bone window shows no aggressive blastic or lytic lesions. Degenerative changes are noted throughout the thoracic spine with loss of disc space and endplate sclerosis. IMPRESSION: 1. Lung-RADS category 1: No nodules or definitely benign nodules. Recommendations: 1 or 2: Annual screening with low-dose CT in 12 months. 2. No emphysematous changes are present. All CT scans at this facility are performed using low dose modulation techniques as appropriate to perform exam including the following: automated exposure control; use of iterative reconstruction technique; adjustment of the mA and/or kV according to patient size (this includes techniques or standardized protocols for targeted exams where dose is matched to indication/reason for exam). Reviewed, dictated and finalized at location S. IMPRESSION: 1. Lung-RADS category 1: No nodules or definitely benign nodules. Recommendations: 1 or 2: Annual screening with low-dose CT in 12 months. 2. No emphysematous changes are present. All CT scans at this facility are performed using low dose modulation techniqu es as appropriate to perform exam including the following: automated exposure c ontrol; use of iterative reconstruction technique; adjustment of the mA and/or kV according to patient size (this includes techniques or standardized protocol s for targeted exams where dose is matched to indication/reason for exam).
--- OUTSIDE RECORDS SUMMARY | 2025-05-02 15:02 | XMS_ITS | Clinical Summary ---
Author Organization [facility] Address [address] [place] [address] Care Team Providers Care Ticket Collector Name Role Phone Jami Cruz MD Primary Care Provider [phone] Allergies Active Allergy Reactions Criticality Noted Date Comments Insect Venom Anaphylaxis High 12/16/2024 Fire ants, bees, etc Medications econazole 1 [...] Active Problems Problem Noted Date Diagnosed Date Cellulitis of foot, left 03/14/2025 Besotns-Zkiun-Ferkl disease type 1B 03/14/2025 Overview (03/14/2025): unknown type Hematuria 03/14/2025 OM (onychomycosis) 03/14/2025 Charcot Carlie Tooth muscular atrophy 03/14/2025 Peripheral neuropathy 03/14/2025 Overview (03/14/2025): Due to Charcot Carlie Tooth muscular atrophy Foot pain, left 12/17/2024 Bilateral impacted cerumen 02/23/2024 Peripheral vascular disease 03/01/2022 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 07/02/2019 Finding of above normal blood pressure 9 Intermittent claudication 07/02/2019 Melanocytic nevus 07/02/2019 Poor peripheral blood flow due to vasomotor reac tion 07/02/2019 Tobacco dependence syndrome 07/02/2019 Hyperlipemia 05/13/2015 Overview (10/07/2016): Hyperlipidemia, familial, high LDL Tobacco use 05/13/2015 Overview (10/07/2016): Tobacco use Femoral artery stenosis 05/13/2015 Overview (10/07/2016): Peripheral arterial disease Dyspnea on exertion 05/13/2015 Overview (10/07/2016): Dyspnea on exertion Keratosis, senilis 02/19/2015 Senile angioma 02/19/2015 Encounters Date Type Department Care Team Description 03/14/2025 2:30 PM CDT Office Visit [facility] [address] [place] [address] [place] [address] [phone] Junaid Mirza DO Feuvqre-Cjwxp-Nmpfm disease (Primary Dx); Sprain of anterior talofibular ligament of left ankle, initial encounter 03/14/2025 1:57 PM CDT - 03/14/2025 11:59 PM CDT Hospital Encounter [facility] [address] [place] [id number] Xaqkkwn-Lirzz-Smpax disease; Sprain of anterior talofibular ligament of left ankle, initial encounter Discharge Disposition: Discharge to home or self care from Last 3 Months Surgical History Surgery Date Site/Laterality Comments NO PAST SURGERIES COLONOSCOPY ANGIOPLASTY 09/07/2019 BLADDER SURGERY 12/22/21 tumor non-invasive Medical History Medical History Date Comments Hyperlipidemia Hyperlipidemia Hx Other Medical PAD PAOD (peripheral arterial occlusive disease) Gfqnsoe-Dlhxv-Uvdud disease type 2 Intermittent claudication Dyspnea on exertion Diverticulosis Hepatitis B virus infection Hepa juliana B was tx w/gamma globulin, also had [...] Date Smoking Tobacco: Every Day Cigarettes 1.3 70.8 Started: 07/04/1953 Smokeless Tobacco: Never Tobacco Cessation:Ready to Q uit: No; Counseling Given: Yes Comments:was on chantix twice but had stomach problems Alcohol Use Standard Drinks/Week Comments Yes 4 (1 standard drink = 0.6 oz pur e alcohol) [facility] Utilities Answer Date Recorded In the past 12 months has [employer], gas, oil, or water [employer] threatened to shut off services in your home? No 12/17/2024 Social Connection and Isolation Panel Answer Date Recorded In a typical week, how many times do you talk on the phone with family, friends, or neighbors? Three times a week 12/17/2024 How often do you get togethe r with friends or relatives? Three times a week 12/17/2024 How often do you attend chur ch or worship services? Never 12/17/2024 Do you belong to any clubs o r organizations such as holiness groups, unions, fraternal or athletic groups, or school groups? No 12/17/2024 How often do you attend meet ings of the clubs or organizations you belong to? Never 12/17/2024 Are you , , di vorced, , never , or living with a partner? 12/17/2024 AUDIT-C Answer Date Recorded Q1: How often do you have a drink containing alc ohol? Monthly or less 12/17/2024 Q2: How many drinks containi ng alcohol do you have on a typical day when you are drinking? 1 or 2 12/17/2024 Q3: How often do you have si x or more drinks on one occasion? Less than monthly 12/17/2024 Overall Financial Resource Strain (CARDIA) Answe r Date Recorded How hard is it for you to pa y for the very basics like food, housing, medical care, and heating? Not very hard 12/17/2024 Hunger Vital Sign Answer Date Recorded Within the past 12 months, y ou worried that your food would run out before you got the money to buy more. Never true 12/18/19 25 Within the past 12 months, t he food you bought just didn't last and you didn't have money to get more. Never true 12/17/2024 PRAPARE - Transportation Answer Date Re corded In the past 12 months, has l ack of transportation kept you from medical appointments or from getting medications? No 12/02 In the past 12 months, has l ack of transportation kept you from meetings, work, or from getting things needed for daily living? No 12/17/2024 Housing Stability Vital Sign Answer Jenaro e Recorded In the last 12 months, was t here a time when you were not able to pay the mortgage or rent on time? No 12/17/2024 In the past 12 months, how m any times have you moved where you were living? 0 12/17/2024 At any time in the past 12 m [facility], were you homeless or living in a fpc (including now)? No 12/17/2024 Personal Safety Answer Date Recorded Have you ever been in or are you currently in a harmful physical or emotional relationship or is someone making you feel afraid or unsafe? Denies 12/17/2024 Sex and Gender Information Value Date Recorded Sex Assigned at Not on file Legal Sex Male 11:32 AM RN CLINICAL APPEALS Gender Identity Male 02/18/2021 6:42 AM CDT Sexual Orientation Straight 08/15/2019 7: 08 AM RN CLINICAL APPEALS Obstetrics History Last Filed Vital Signs Vital Sign Reading Time Taken Comments Blood Pressure 139/62 12/19/2024 7:06 AM CDT Pulse 57 12/19/2024 10:33 AM CDT Temperature 36.7 C (98 F) 12/19/2024 7:06 AM CDT Respiratory Rate 20 12/19/2024 7:06 AM CDT Oxygen Saturation 99% 12/19/2024 7:06 AM CDT Inhaled Oxygen Concentration - - Weight 60.3 kg (133 lb) 03/14/2025 3:02 PM CDT Height 162.6 cm (5' 4) 03/14/2025 3:02 PM CDT Body Mass Index 22.83 03/14/2025 3:02 PM CDT Plan of Treatment Health Maintenance Due Date Last Done Comments Depression Screening 1945 Hepatitis C Screening 1945 DTaP/Tdap/Td Vaccine (1 - Tdap) 1957 Hepatitis B Screening 1964 Lung Cancer Screening 1996 Zoster Vaccine (1 of 2) 1996 Abdominal Aortic Aneurysm (AAA) Screen 09/17/2011 Well Visit 65+ 09/17/2011 Pneumococcal vaccine 65+ (2 of 2 - PPSV23, PCV20, or PCV21) 01/05/2023 11/10/2022 Influenza Vaccine (#1) 2025 03/07/2024, 2022 Fall Risk Assessment 12/19/2025 12/19/2024, 11/03/19 18 Medical Devices Implanted Type Area Crna Device Identifier Shelf Expiration Date Model / Serial / Lot [employer] [id number] Device Closure Angio-Seal Vip Bondek-Plus Polyglyd L70 Cm Od6 Fr Odsec.035 [employer] - [id number] Implanted:Qty: 1 on 09/07/2019 by Albert Willis MD at [facility] [employer] [id number] / / [employer] [id number] Omnilink Elite 7mm 16mm 135cm Otw Balloon Expandable Low Profile - [id number] Implanted:Qty: 1 on 09/07/2019 by Albert Willis MD at [facility] [employer] [id number] Description:Our stock given back to rep, our stock implanted Procedures Procedure Name Priority Date/Time Associated Diagnosis Comments XR ANKLE LEFT 3 OR MORE VIEWS Schedule Routine, Read Routine (OP Routine) 03/14/2025 2:16 PM CDT Qelpfjx-Mvctg-Otim h disease Sprain of anterior talofibular ligament of left ankle, initial encounter XR FOOT LEFT 3 OR MORE VIEWS Schedule Routine, Read Routine (OP Routine) 03/14/2025 2:16 PM CDT Tvfecgv-Urvwm-Igmw h disease Sprain of anterior talofibular ligament of left ankle, initial encounter from Last 3 Months Results * XR Foot Left 3 or More Views (03/14/2025 2:16 PM CDT) Anatomical Region Laterality Modality Lower Extremities, Foot Left Computed Radiography 03/16/2025 3:12 PM CDT Narrative 03/16/2025 3:13 PM CDT EXAM DESCRIPTION: 1. XR FOOT LEFT 3 OR MORE VIEWS; 2. XR ANKLE LEFT 3 OR MORE VIEWS REASON FOR STUDY: Left ankle and foot pain. Mild lateral foot pain and swelling since fall 12-15-24 FINDINGS: Three views left ankle and three views left foot submitted with comparison 01/07/2025. Moderate left ankle osteoarthritis. Heterotopic ossification at the medial malleolus is consistent with an old deltoid ligament sprain. Tiny heel spur is present. Mild midfoot osteoarthritis. Mild hallux valgus with 1st metatarsophalangeal joint osteoarthritis. Lateral left ankle soft tissue swelling is present. IMPRESSION: 1. Lateral left ankle soft tissue swelling. No acute fracture identified. 2. Moderate left ankle osteoarthritis. 3. Mild left midfoot and 1st metatarsophalangeal joint osteoarthritis. THIS IS AN ELECTRONICALLY VERIFIED FINAL REPORT 03/16/2025 3:13 PM - Electronically signed by Rogelio Bustos M.D. T: Report ID: [id number] Reading Location: [id number] Procedure Note Rogelio Bustos MD - 03/16/2025 EXAM DESCRIPTION: 1. XR FOOT LEFT 3 OR MORE VIEWS; 2. XR ANKLE LEFT 3 OR MORE VIEWS REASON FOR STUDY: Left ankle and foot pain. Mild lateral foot pain and swelling since fall 12-15-24 FINDINGS: Three views left ankle and three views left foot submitted with comparison 01/07/2025. Moderate left ankle osteoarthritis. Heterotopic ossification at themedial malleolus is consistent with an old deltoid ligament sprain. Tiny heelspur is present. Mild midfoot osteoarthritis. Mild hallux valgus with 1st metatarsophalangeal joint osteoarthritis. Lateral left ankle soft tissue swelling is present. IMPRESSION: 1. Lateral left ankle soft tissue swelling. No acute fractureidentified. 2. Moderate left ankle osteoarthritis. 3. Mild left midfoot and 1st metatarsophalangeal joint osteoarthritis. THIS IS AN ELECTRONICALLY VERIFIED FINAL REPORT 03/16/2025 3:13 PM - Electronically signed by Rogelio Bustos M.D. T: Report ID: [id number] Reading Location: [place] [id number] Junaid Mirza DO IMG XR PROCEDURES Final Result * XR Ankle Left 3 or More Views (03/14/2025 2:16 PM CDT) Anatomical Region Laterality Modality Lower Extremities, Ankle Left Compute d Radiography 03/16/2025 3:12 PM CDT Narrative 03/16/2025 3:13 PM CDT EXAM DESCRIPTION: 1. XR FOOT LEFT 3 OR MORE VIEWS; 2. XR ANKLE LEFT 3 OR MORE VIEWS REASON FOR STUDY: Left ankle and foot pain. Mild lateral foot pain and swelling since fall 12-15-24 FINDINGS: Three views left ankle and three views left foot submitted with comparison 01/07/2025. Moderate left ankle osteoarthritis. Heterotopic ossification at the medial malleolus is consistent with an old deltoid ligament sprain. Tiny heel spur is present. Mild midfoot osteoarthritis. Mild hallux valgus with 1st metatarsophalangeal joint osteoarthritis. Lateral left ankle soft tissue swelling is present. IMPRESSION: 1. Lateral left ankle soft tissue swelling. No acute fracture identified. 2. Moderate left ankle osteoarthritis. 3. Mild left midfoot and 1st metatarsophalangeal joint osteoarthritis. THIS IS AN ELECTRONICALLY VERIFIED FINAL REPORT 03/16/2025 3:13 PM - Electronically signed by Rogelio Bustos M.D. T: Report ID: [id number] Reading Location: [id number] Procedure Note Rogelio Bustos MD - 03/16/2025 EXAM DESCRIPTION: 1. XR FOOT LEFT 3 OR MORE VIEWS; 2. XR ANKLE LEFT 3 OR MORE VIEWS REASON FOR STUDY: Left ankle and foot pain. Mild lateral foot pain and swelling since fall 12-15-24 FINDINGS: Three views left ankle and three views left foot submitted with comparison 01/07/2025. Moderate left ankle osteoarthritis. Heterotopic ossification at themedial malleolus is consistent with an old deltoid ligament sprain. Tiny heelspur is present. Mild midfoot osteoarthritis. Mild hallux valgus with 1st metatarsophalangeal joint osteoarthritis. Lateral left ankle soft tissue swelling is present. IMPRESSION: 1. Lateral left ankle soft tissue swelling. No acute fractureidentified. 2. Moderate left ankle osteoarthritis. 3. Mild left midfoot and 1st metatarsophalangeal joint osteoarthritis. THIS IS AN ELECTRONICALLY VERIFIED FINAL REPORT 03/16/2025 3:13 PM - Electronically signed by Rogelio Bustos M.D. T: Report ID: [id number] Reading Location: [id number] Junaid Mirza DO IMG XR PROCEDURES Final Result from Last 3 Months Insurance [id number] MEDICARE ADVANTAGE MEDICARE ADVANTAGE Advance Directives For more information, please contact: [phone] * Full Code (Latest Code Status on File) Date Activated Date Inactivated Comments 12/17/2024 9:25 AM 12/19/2024 5:15 PM Care Teams Ticket Collector Relationship Specialty Start Date End Date Jami Cruz MD PCP - General Family Medicine 05/02/24
== END 2025-05-02 14:35 | disposition home or self-care (01) ==
PROVIDERS: PCP Family Medicine; Visit Provider Student in an Organized Health Care Education/Training Program
DX: Z12.2 Encounter for screening for malignant neoplasm of respiratory organs (principal); Z87.891 Personal history of nicotine dependence
CPT/HCPCS: 71271